=== PATIENT | female | born 1995 | race Caucasian/White ===

== ENCOUNTER 2023-07-18 16:35 | Outpatient (OUT) | payer BC, SELFPAY ==
[2023-07-18 16:55] LABS: Basophils Absolute Auto 0.1 10^3/uL (0.0-0.1); Basophils Percent Auto 0.7 % (0.2-2.0); Eosinophils Absolute Auto 0.4 10^3/uL (0.0-0.7); Eosinophils Percent Auto 4.9 % (0.9-7.0); Hematocrit 41.8 % (36.0-48.0); Hemoglobin 14.2 g/dL (12.0-16.0); Immature Granulocytes Abs Auto 0.01 10^3/uL (0.00-0.03); Immature Granulocytes Pct Auto 0.1 % (0.0-0.5); Lymphocytes Absolute Auto 1.4 10^3/uL (1.2-3.8); Lymphocytes Percent Auto 18.7 % (20.5-60.0); Mean Corpuscular Hemoglobin 30.8 pg (26.7-34.0); Mean Corpuscular Volume 90.7 fL (81.0-99.0); Mean Platelet Volume 9.6 fL (9.5-13.5); Monocytes Absolute Auto 0.6 10^3/uL (0.3-0.8); Monocytes Percent Auto 7.8 % (1.7-12.0); Neutrophils Absolute Auto 4.9 10^3/uL (1.4-6.5); Neutrophils Percent Auto 67.8 % (43.0-75.0); Platelet Count 232 10^3/uL (150-450); Red Blood Count 4.61 10^6/uL (4.20-5.40); Red Cell Distribution Width 12.3 % (11.0-15.0); White Blood Count 7.2 10^3/uL (4.0-11.0)
[2023-07-18 17:05] LABS: Estimated Average Glucose 100 mg/dL; Glycohemoglobin A1C 5.1 % (4.5-6.2)
[2023-07-18 17:34] LABS: Alanine Aminotransferase 27 U/L (14-59); Albumin Globulin Ratio 1.2; Alkaline Phosphatase 91 U/L (46-116); Anion Gap 14.2; Aspartate Amino Transferase 19 U/L (15-37); BUN Creatinine Ratio 12.3; Bilirubin Total 0.9 mg/dL (0.2-1.0); Calcium 8.4 mg/dL (8.5-10.1); Carbon Dioxide 26.4 mmol/L (21.0-32.0); Chloride 104 mmol/L (98-107); Chol HDL Ratio 2.9; Cholesterol 168 mg/dL (<=200); Estimated GFR (African America >60 (>=60); Estimated GFR (Non-African Ame >60 (>=60); Globulin 3.4 g/dL; Glucose 95 mg/dL (74-106); HDL Cholesterol 57 mg/dL (40-60); Potassium 3.6 mmol/L (3.5-5.1); Sodium 141 mmol/L (136-145); Thyroid Stimulating Hormone 1.307 uIU/mL (0.358-3.740); Total Protein 7.4 g/dL (6.4-8.2); Triglycerides 65 mg/dL (<=150)
== END 2023-07-18 16:36 | disposition home or self-care (01) ==
PROVIDERS: PCP Nurse Practitioner; Visit Provider Nurse Practitioner
DX: Z00.00 Encounter for general adult medical examination without abnormal findings (principal)
CPT/HCPCS: 36415; 80053; 80061; 83036; 84443; 85025

== ENCOUNTER 2023-08-14 19:22 | Outpatient (REF) | payer BC, SELFPAY ==
[2023-08-19 16:10] LABS: Age Gdln ACOG Testing Note (.); IGP, rfx Aptima HPV ASCU Note (.)
== END 2023-08-14 19:23 | disposition home or self-care (01) ==
LOC: LAB 19:22
PROVIDERS: PCP Nurse Practitioner; Visit Provider Obstetrics & Gynecology
DX: Z01.419 Encounter for gynecological examination (general) (routine) without abnormal findings (principal)
CPT/HCPCS: G0145

== ENCOUNTER 2024-09-01 20:06 | Outpatient (REF) | payer BC, SELFPAY ==
--- OUTSIDE RECORDS SUMMARY | 2024-09-01 20:11 | XMS_ITS | CCD ---
Author Organization [facility] Care Team Providers Care Fuel Injection Servicer Name Role Phone CAROLYN CARRILLO Unavailable Unavailable NO FAMILY DOCTOR, NO FAMILY DOCTOR Unavailable Unavailable Hannah Calvo Unavailable Ana María Hanna Unavailable ABDIEL, DR JOLLEY Consulting Unavailable ABDIEL, DR JOLLEY Attending Unavailable ABDIEL, DR JOLLEY Admitting Unavailable ABDIEL, DR JOLLEY Attending Unavailable ABDIEL, DR JOLLEY Procedure Practitioner Unavailab le ABDIEL, DR JOLLEY Consulting Unavailable ABDIEL, DR JOLLEY Admitting Unavailable ZIEBER, DR DEREJE Block Consulting Unavailable SHARPKEYONNA Consulting Unavailable GEMBUS, DURAN Consulting Unavailable ABDIEL, DR JOLLEY Admitting Unavailable ABDIEL, DR JOLLEY Attending Unavailable ABDIEL, DR JOLLEY Consulting Unavailable ABDIEL, DR JOLLEY Admitting Unavailable ABDIEL, DR JOLLEY Attending Unavailable ABDIEL, DR JOLLEY Consulting Unavailable ZIEBER, DR DEREJE Block Consulting Unavailable ABDIEL, DR JOLLEY Consulting Unavailable ABDIEL, DR JOLLEY Attending Unavailable ABDIEL, DR JOLLEY Admitting Unavailable ABDIEL, DR JOLLEY Consulting Unavailable ABDIEL, DR JOLLEY Attending Unavailable ABDIEL, DR JOLLEY Admitting Unavailable ZIEBER, DR DEREJE Block Consulting Unavailable ABDIEL, DR JOLLEY Admitting Unavailable ABDIEL, DR JOLLEY Attending Unavailable ABDIEL, DR JOLLEY Consulting Unavailable ABDIEL, DR JOLLEY Admitting Unavailable ABDIEL, DR JOLLEY Attending Unavailable ABDIEL, DR JOLLEY Consulting Unavailable ABDIEL, DR JOLLEY Attending Unavailable ABDIEL, DR JOLLEY Consulting Unavailable ABDIEL, DR JOLLEY Admitting Unavailable ABDIEL, DR JOLLEY Attending Unavailable ABDIEL, DR JOLLEY Consulting Unavailable DR SHOLA QUINONEZ Admitting Unavailable None, Physician Primary Care Provider ALBERT Masters Emergency Provider [phone] Sherman Masters Attending Unavailable None Primary Care Unavailable ALBRET RODAS Attending Unavailabl e NONE, XXXX Primary Care Physician Unavailab naa Villagran SENIOR TECHNICAL SUPPORT ANALYST, Erika Unavailable Tyshawn SENIOR TECHNICAL SUPPORT ANALYST, Erika Unavailable Anatoliy Pendleton MD Primary Care Provider [phone] SHOLA QUINONEZ Attending Unavailable SHOLA QUINONEZ Attending Unavailable ERIKA VILLAGRAN Attending Unavailable ERIKA VILLAGRAN Attending Unavailable ERIKA VILLAGRAN Attending Unavailable Medications Current Medications Medication Drug Class(es) Dates Sig (Normalized) Sig (Original) acetaminophen 325 mg / HYDROcodone bitartrate 5 mg oral tablet (2 sources) Opioid Agonist Start: 04-21-2023 take 1 tablet by mouth every eight hours Hydrocodone-Aceta minophen Active 1 TAB PO Q8H 14 5 April 21, 2023 amoxicillin 500 mg oral capsule (3 sources) Penicillin-class Antibacterial Start: 05-22-2024 End: 05-29-2024 take 1 capsule by mouth three times daily amoxicillin 500 mg Cap 500 mg = 1 cap(s), Oral, TID, X 7 day(s), # 21 cap(s), Refills(s) 0, Pharmacy: [facility]/pharmacy #[id number], 165, cm, 05/22/24 16:42:00 EDT, Height/Length Dosing, 68, kg, 05/22/24 16:42:00 EDT, Weight Dosing Start Date: 05/22/24 Stop Date: 05/29/24 Status: Ordered Start: 07-06-2022 take 1 tablet by radha th every twelve hours Amoxicillin 875 MG 1 capsule Orally Twice a day for 7 day(s) Jun, Active azithromycin 250 mg oral tablet (1 source) Macrolide Antimicrobial Start: 07-12-2022 Azithromycin 250 MG 2 tablet on the first day, then 1 tablet daily for 4 days Orally Once a day for 5 day(s) Jun, Active hydrocortisone 10 mg/ml / neomycin 3.5 mg/ml / polymyxin b 01890 unt/ml otic suspension (1 source) Aminoglycoside Antibacterial, Polymyxin-class Antibacterial, Corticosteroid Start: 07-12-2022 Neomycin-Polymyxin- HC [id number] 3 drops left ear Three times a day for 7 days Jun, Active levonorgestrel 0.763083 mg/hr intrauterine system (9 sources) Progestin, Progestin-containin g Intrauterine Device Start: 07-19-2023 Levonorgestrel intrauterine device 52 mg predniSONE 20 mg oral tablet (1 source) Start: 05-22-2024 End: 05-27-2024 take 2 tablets by mouth once daily predniSONE 20 mg Tab 40 mg = 2 tab(s), Oral, Daily, X 5 day(s), # 10 tab(s), Refills(s) 0, Pharmacy: [facility]/pharmacy #[id number], 165, cm, 05/22/24 16:42:00 EDT, Height/Length Dosing, 68, kg, 05/22/24 16:42:00 EDT, Weight Dosing Start Date: 05/22/24 Stop Date: 05/27/24 Status: Ordered zolpidem tartrate 5 mg oral tablet (5 sources) gamma-Aminobutyric Acid-ergic Agonist Start: 06-02-2024 End: 07-02-2024 zolpidem (Ambien) 5 MG tablet Indications: Primary insomnia Take 1 tablet (5 mg) by mouth as needed at bedtime for sleep 30 tablet 1 06/02/2024 Active Completed/Discontinued Medications Medication Drug Class(es) Dates Sig (Normalized) Sig (Original) sertraline 50 mg oral tablet (13 sources) Serotonin Reuptake Inhibitor Start: 05-01-2024 End: 10-12-2024 take 1 tablet by mouth once daily sertraline (Zoloft) 50 MG tablet Indications: Generalized anxiety disorder (CMS/HCC) Take 1 tablet (50 mg) by mouth Daily 90 tablet 06/02/2024 07/14/2024 Discontinued (Reorder) Problems Active Problems Problem Classification Problem Date Documented Date Episodic/Chronic Abdominal pain (2 sources) Abdominal pain; Translations: [Unspecified abdominal pain] Episodic Anxiety disorders (14 sources) Generalized anxiety disorder; Translations: [Generalized anxiety disorder] Onset: 05-01-2024 06-02-2024 Chronic Bacterial infection; unspecified site (1 source) Bacterial infectious disease; Translations: [Other specified bacterial agents as the cause of diseases classified elsewhere] Onset: 05-22-2024 Episodic Fracture of lower limb (1 source) Fracture of foot ; Translations: [Unspecified fracture of left foot, initial encounter for closed fracture] 04-21-2023 Episodic Immunizations and screening for infectious disease (6 sources) Encounter for screening for human papillomavirus (HPV); Translations: [Encounter for screening for infections with a predominantly sexual mode of transmission] Onset: 11-02-2021 Episodic Malposition; malpresentation (3 sources) Maternal care for breech presentation, not applicable or unspecified; Translations: [MATERNAL CARE BREECH PRES NA/UNS] Onset: 05-17-2022 Episodic Menstrual disorders (13 sources) Irregular menstruation, unspecified; Translations: [Menorrhagia] Onset: 11-01-2021 Chronic Miscellaneous mental health disorders (9 sources) Primary insomnia; Translations: [Primary insomnia] Onset: 06-02-2024 06-02-2024 Chronic Other ear and sense organ disorders (1 source) Unspecified acute noninfective otitis externa, left ear Episodic Other female genital disorders (9 sources) Cervical intraepithelial neoplasia grade 2; Translations: [Moderate cervical dysplasia] Onset: 05-01-2024 05-01-2024 Episodic Other and delivery including normal (2 sources) Single live ; Translations: [Encounter for supervision of normal , unspecified, first trimester] Onset: 10-05-2021 Episodic Other screening for suspected conditions (not mental disorders or infectious disease) (20 sources) Encounter for screening for malignant neoplasm of cervix; Translations: [Encounter for screening for Streptococcus B] Onset: 11-01-2021 Episodic Other upper respiratory infections (2 sources) Acute laryngitis; Translations: [Acute laryngitis] Onset: 05-22-2024 Episodic Otitis media and related conditions (2 sources) Otitis media, unspecified, bilateral; Translations: [Otitis media, unspecified, left ear] Episodic Residual codes; unclassified (1 source) 39 weeks gestation of ; Translations: [39 WEEKS GESTATION OF ] Onset: 05-23-2022 Episodic Residual codes; unclassified (2 sources) Pain; Translations: [Pain, unspecified] 04-21-2023 Episodic Unclassified (2 sources) Pelvic and perineal pain / R10.2(ICD-9) Onset: 10-06-2017 Unclassified (1 source) Oth complication of genitourinary prosth dev/grft, init / T83.89XA(ICD-9) Onset: 10-06-2017 Unclassified (1 source) EXCESS FREQ MENSTRUATION W/REG CYCL / N92.0(ICD-9) Onset: 10-06-2017 Unclassified (1 source) CONTACT W/AND (SUSP) EXPOS COVID-19; Translations: [CONTACT W/AND (SUSP) EXPOS COVID-19] Onset: 05-17-2022 Past or Other Problems Problem Classification Problem Date Documented Date Episodic/Chronic Abdominal pain (1 source) Pelvic and perineal pain; Translations: [Pelvic and perineal pain] Onset: 10-06-2017 Other female genital disorders (1 source) Other specified noninflammatory disorders of vagina; Translations: [OTH SPEC NONINFLAMMATORY D/O VAGINA] Onset: 12-30-2021 Episodic Results Test Name Value Interpretation Reference Range Facility Family Medicine Office/Clini c Noteon 05-25-2024 Family Medicine Office/Clinic Note Family Medicine Office/Clinic Note Chief Complaint cough HPI Staff 29 year old female presents with cough, fever, painful deep breaths, and loss of voice since Sunday tylenol, motrin History of Present Illness Reviewed and agree with above documented HPI by medical device engineer. Portions of this record may have been created with voice recognition artificial intelligence software, specifically [employer], [employer] and or [employer]. Substitutions may have occurred due to the inherent limitations of voice recognition and artificial intelligence software. Patient is a 29-year-old female who presented convenient care, nonproductive cough, fever, pain with taking deep breaths, loss of voice. States symptoms been going on for over 2 to 3 weeks, fissured nose allergies, but symptoms persist, she started getting fevers, started taking ibuprofen and Tylenol together which has been helping, she has been drinking plenty of fluids, states she started getting laryngitis about 4 days ago, states she has been able to eat and drink, has a sense of taste and smell intact, has some discomfort swallowing but no difficulty swallowing, patient that she is not concerned about exposure to COVID-19 or, influenza, strep pharyngitis. Patient and no other family members are ill at home. Patient denies having any headaches, dizziness, fevers that is uncontrollable with medication, chills, difficulty swallowing, productive cough, worsening cough, wheezing, chest pain, dyspnea on exertion, or weakness. Review of Systems PHQ Score Initial Depression Screen Score: 0 SCORE Physical Exam Vitals & Measurements T: 38.2 ?C(Tympanic) HR: 71(Peripheral) BP: 112/68 SpO2: 99% HT: 65 in HT: 165 cm WT: 68 kg WT: 149.6 lb BMI: 24.98 General: Well developed, well nourished, in no acute distress. Patient does not appear ill or septic. No respiratory distress. Patient answers questions appropriately in complete sentences, and follows commands appropriately. Head: Normocephalic/atraumati c. Bilateral frontal and bilateral maxillary sinus tenderness and pressure with palpation. No facial swelling or cellulitis noted. Eyes: Pupils equal, round, and reactive to light. Conjunctivae and sclerae normal. Ears: Bilateral TMs bulging, equally with no signs of otitis media or otitis externa. Hearing is intact. Nose: No deformity, discharge, inflammation, or lesions Mouth: Mucous membranes moist. Normal oropharynx, and posterior pharynx erythema and postnasal drip more on the right than the left, without exudates, enlarged tonsils, lesions, or peritonsillar abscess. No trismus. No difficulty swallowing. Neck: Neck supple. No masses or palpable cervical nodes. No mastoid tenderness. Lungs: Normal respiratory effort and clear to auscultation throughout. Cardio: regular rate and rhythm, no murmur. No chest wall tenderness. Neurologic: Grossly normal Skin: No rashes, ulcerations, or suspicious lesions Lymph Nodes: no lad Mental Status: alert, active Assessment/Plan No swabs, breathing treatment, chest imaging or indicated at this time. 29-year-old female presented convenient care, for acute bacterial sinusitis, symptoms started about 3 weeks ago, laryngitis started about Sunday last week, patient did appear ill but not septic, no respiratory distress, no difficulty swallowing. Patient was given prescription for amoxicillin and prednisone, instructed take [id number] Tylenol as needed for body aches, fevers, headaches. Patient given work excuse note, and follow-up with primary care provider as needed. 1. Acute bacterial sinusitis (J01.90: Acute sinusitis, unspecified) See above 2. Laryngitis (J04.0: Acute laryngitis) See above Other specified bacterial agents as the cause of diseases classified elsewhere (B96.89: Other specified bacterial agents as the cause of diseases classified elsewhere) Follow-up With When Contact Information NONE, XXXX [phone] Additional Instructions: Patient Education Laryngitis, Xsks-vq-Uhla Sinus Infection, Adult, Ydze-xk-Qexj Problem List/Past Medical History Ongoing No qualifying data Historical No qualifying data Medications amoxicillin 500 mg Cap, 500 mg= 1 cap(s), Oral, TID predniSONE 20 mg Tab, 40 mg= 2 tab(s), Oral, Daily sertraline 50 mg Tab Allergies No Known Medication Allergies Social History Tobacco Never (less than 100 in lifetime) Tobacco Use:. Never Smokeless Tobacco Use:., 05/22/2024 Immunizations Vaccine Date Status Comments influenza virus vaccine, inactivated 08/18/2022 Recorded SARS-CoV-2 (COVID-19) mRNA-1273 vaccine 07/28/2021 Recorded 2024-05-22: TPVALL SARS-CoV-2 (COVID-19) mRNA-1273 vaccine 07/04/2021 Recorded 2024-05-22: TPVALL influenza virus vaccine, inactivated 05/05/2020 Recorded measles/mumps/rubella virus vaccine 06/20/2019 Recorded influenza virus vaccine, inactivated 06/20/2019 Recorded diphtheria/pertussis, acel/tetanus adult 05/17/2017 Record (more content not included)... Normal [facility] Comment on above: Result Comment: Elec tronically Signed By: SEAN RODAS PA-C\.br\Date and Time Signed: 05/25/24 14:12 EDT Ambulatory Visit Summaryon 1 Ambulatory Visit Summary Ambulatory Visit Summary LETHA NEWBY :1995 Visit Date:05/22/2024 Ambulatory Visit Instructions Your Diagnosis Acute bacterial sinusitis Laryngitis Other specified bacterial agents as the cause of diseases classified elsewhere Your Care Team Attending Physician - SEAN RODAS PA-C Primary Care Physician - NONE, XXXX This Is Your Medications List amoxicillin (amoxicillin 500 mg Cap) predniSONE (predniSONE 20 mg Tab) sertraline (sertraline 50 mg Tab) Discharge Vitals Temperature (Tympanic) 38.2 ?C Heart Rate (Peripheral) 71 Blood Pressure 112/68 Height 165 cm Height 65 in Weight 68 kg Weight 149.6 lb BMI 24.98 Medications What How Much When Why Instructions New amoxicillin (amoxicillin 500 mg Cap) 1 Capsules By Mouth 3 times a day Acute bacterial sinusitis Duration: [id number] New predniSONE (predniSONE 20 mg Tab) 2 Tablets By Mouth Every day Laryngitis Duration: 5 Days [id number] Unchanged sertraline (sertraline 50 mg Tab) 30 EA, 0 Refill(s), TAKE 1/ 2 TABLET DAILY FOR 7 DAYS THEN INCREASE TO 1 TABLET DAILY Pharmacy Information [facility] #[id number]: [address], [place] [id number] [phone] Allergies No Known Medication Allergies Patient Survey You may receive a survey via text or e-mail asking about your office visit. Please share your experience with us by completing your survey. We appreciate your feedback and thank you for choosing us for your care. [facility] Patient Letter [facility] [address] [place] [address] May 22, 2024 LETHA NEWBY [address] [place] [address] : 1995 Please excuse LETHA NEWBY from work . Date and/or Time of Absence: From: 05/22/24 May return to work on: 05/26/24 Restrictions: None Comments: Please excuse due to an acute illness. Provider Signature: Sean Rodas PA-C [address] [place] [address] [place] [address] [facility] ER Physician Documentationon 04-30-2023 ER Physician Documentation [facility] Patient: BETTYELETHAKERI LUCAS [address] : 1995 [place] [address] Location: ER [phone] Unit #: [id number] ER Physician Documentation Service Date:04/21/23 ER Provider: Guerrero PRICE,Sherman BRADLEY - Lower Extremity Injury - Time Seen by Provider: 04/21/23 08:03 History of Present Illness Stated Complaint: LT FOOT INJURY History of Present Illness: This is a 28-year-old female who presents emergency department complaints of left foot pain. She was standing on a 4 inch block of wood when the wood slipped out from under her she inverted her ankle//foot. She did not suffer any other injuries. She did not hit her head or lose consciousness. She denies any associated knee pain. No chance of . No other complaints at this time. Review of Systems Review of Systems Constitutional: No symptoms; denies Weight gain or Weight loss EENT: No symptoms; denies Sore throat or Runny nose Respiratory: No symptoms; denies Cough or Trouble breathing Cardiac: No symptoms; denies Chest pain Abdomen/GI: No symptoms; denies Nausea, Vomiting, Diarrhea or Pain Genitourinary: No symptoms; denies Flank pain or Urgency Skin: No symptoms; denies Itching or Rash Musculoskeletal: Other (Left foot pain); denies Muscle pain, Joint pain, Neck pain or Back pain Neurological: No symptoms; denies Dizzy, Headache or Weakness Past Family Social History Social History: Caffeine Amount: <1/Day Alcohol Amount: Socially/Occasionally Type of Alcohol: Bee r Street Drugs: None Smoking Status: Never smoked Exam Physical Exam: Patient presentation: Well appearing and No apparent distress Genera l Appearance: Positive Resting comfortable General Age: Appears stat ed age General Mental Status: Alert General hydration: Moist muco us membranes Orders/Results Orders: Orders Crutches (ED) [ED Crutches] NOW ED Ortho 04/21/23 08:56 Active Splint (ED) [ED Splint Applied] . DIRECTED ED Tx 04/21/23 08:56 Active Vital Signs Vital Signs: Vital Signs 04/21/23 08:05 98.2 F 103 H 17 132/108 H 95 Medical Decision Making MDM: HPI: This is a 28-year-old female who presents emergency department complaints of left foot pain. She was standing on a 4 inch block of wood when the wood slipped out from under her she inverted her ankle//foot. She did not suffer any other injuries. She did not hit her head or lose consciousness. She denies any associated knee pain. No chance of . No other complaints at this time. PE: Ecchymosis and swelling noted to the left lateral foot. Normal dorsi/plantarflexion. 2+ DP/PT pulses. Tenderness noted to the left 4th, 5th MT. Differential diagnoses include left foot fracture, left ankle fracture, musculoskeletal sprain Laboratory studies today included none Imaging ordered today included XR left foot, XR left ankle I ordered the lab test today and imaging and reviewed the results which included normal labs. I reviewed the patient's prior hospitalization/ER records from our EMR. Patient received no medicines in our emergency department. Was offered pain medication but declined. Patient will be discharged with diagnosis of left foot fracture We discussed return to emergency department criteria, the patient acknowledges that they understand and are agreeable with the plan of care. Vital signs are stable at time of discharge. Rx: Corona 0900: Unfortunately patient is here from out of town. She is currently camping. She will follow-up with orthopedic surgeon in her hometown. Encouraged rest ice and elevate. Procedures Splinting/Sling Placement Left Foot: Pre-splint extremity exam: Neurovascular intact and Good alignment Type of splint: Posterior long leg Splint Material: OCL Applied by: Tech With direct supervison by: Myself Post application neurovascular intact?: Yes Crutches fitted by: Tech Additional information: Patient tolerated well, neurovascular intact. Supervision/Review Statement Supervision/Review of Mid-Level Statement: Supervision ONLY, my collaborating physician was Dr. Oswaldo Bryant. Discharge Plan Discharge Patient Disposition: Discharge from ER Condition: Good Chief Complaint: Lower Extremity Injury Clinical Impression*: Fracture of left foot Instructions: Foot Fracture in Adults (ED) Activity Restrictions/Additional Instructions: Please return to emergency department with questions/concerns/conc erning symptoms. Follow-up with your primary care doctor. Follow-up with an orthopedic surgeon in your hometown. Use Corona with caution as it may make you drowsy. Do not work or drive while taking this medicine. Rest, ice, elevate. Referrals: None,Physician [Primary Care Provider] - Tomorrow *If patient expires, ba (more content not included)... Normal [facility] XR Ankle Lt Routine Min 3 Vw son 04-21-2023 XR Ankle Lt Routine Min 3 Vws [facility] Radiology Department Patient: LETHA NEWBY [address] : 1995 Sex: Aric Zimmer [id number] Location: [place] [address] Unit #: [id number] Ordering Phys: Sherman Masters PA-C Exam Date: 04/21/23 Exam: MAIN XR Ankle Lt Routine Min 3 Vws Result: See Report STUDY: X-RAY - LEFT ANKLE REASON FOR EXAM: Female, 28 years old. LATERAL ASPECT PAIN, SWELLING, AND BRUISING OF THE FOOT-X 1 DAY-PT STATES SHE ROLLED HER ANKLE WHILE STANDING ON A LOG TECHNIQUE: 3 view(s) of the ankle. COMPARISON: None. FINDINGS: Normal visualized distal tibia and fibula. Normal medial and lateral malleoli. Normal tibiotalar articulation and ankle mortise. Normal visualized talus and calcaneus. The visualized subtalar, talonavicular, calcaneocuboid and tarsal articulations are normal. There is no demonstrated fracture. The soft tissue structures are unremarkable. IMPRESSION: Normal x-ray examination of the ankle. Electronically Signed: Mannie Brown MD at 8:48 EDT , cc: None; Sherman Masters PA-C Dictated by: Mannie Brown MD on 04/21/23847 Transcribed by: Mannie Brown MD on 04/21/23847 Report Signed by: Kevin ROTH,Mannie Garces on 04/21/23847 Normal [facility] XR Foot Lt. Routine Min 3 Vi ewon 04-21-2023 XR Foot Lt. Routine Min 3 View [facility] Radiology Department Patient: LETHA NEWBY [address] : 1995 Sex: Aric Zimmer [id number] Location: [phone] Unit #: [id number] Ordering Phys: Sherman Masters PA-C Exam Date: 04/21/23 Exam: MAIN XR Foot Lt. Routine Min 3 View Result: See Report STUDY: X-RAY - LEFT FOOT CLINICAL: Female, 28 years old. LATERAL ASPECT PAIN, SWELLING, AND BRUISING OF THE FOOT-X 1 DAY-PT STATES SHE ROLLED HER ANKLE WHILE STANDING ON A LOG TECHNIQUE: 3 view(s) of the foot. COMPARISON: None. FINDINGS: An acute horizontal fracture is present in the base of the fifth metatarsal bone distal to the articular surface with minimal offset. The adjacent soft tissues are mildly swollen. No additional acute fractures are present. Normal talus, calcaneus, and tarsal bones. Normal visualized subtalar, talonavicular, calcaneocuboid, tarsal and tarsometatarsal articulations. Normal metatarsophalangeal joint of the great toe. Normal tibial and fibular sesamoid bones. Normal interphalangeal joint of the great toe. Normal phalanges of the great toe. Normal second through fifth metatarsophalangeal joints. Normal interphalangeal joints and phalanges of the lesser toes. IMPRESSION: 1. Acute horizontal fracture at the base of the fifth metatarsal bone Electronically Signed: Mannie Brown MD at 8:48 EDT Reading Location ID and State: [facility] / [place] , Service support , cc: None; Sherman Masters PA-C Dictated by: Mannie Brown MD on 04/21/23847 Transcribed by: Mannie Brown MD on 04/21/23847 Report Signed by: Mannie Brown MD on 04/21/2348 Normal [facility] PAP ACOG PANEL 2: 21 to 29on 08-17-2022 . . Normal [facility] Comment on above: Performed By: #### [id number] #### [facility] [address] [place] [address] Dr. Nacho Beach Age Gdln ACOG Testing - [facility] Comment on above: Performed By: #### [id number] #### [facility] [address] [place] [address] Dr. Nacho Beach DIAGNOSIS: Comment [facility] Comment on above: Result Comment: NEGA TIVE FOR INTRAEPITHELIAL LESION OR MALIGNANCY. Performed By: #### [id number] #### [facility] [address] [place] [address] Dr. Nacho Beach Methodology: Comment [facility] Comment on above: Result Comment: This liquid based ThinPrep(R) pap test was screened with the use of an image guided system. Performed By: #### [id number] #### [facility] [address] [place] [address] Dr. Nacho Beach Note: Comment [facility] Comment on above: Result Comment: The Pap smear is a screening test designed to aid in the detection of premalignant and malignant conditions of the uterine cervix. It is not a diagnostic procedure and should not be used as the sole means of detecting cervical cancer. Both false-positive and false-negative reports do occur. . Performed By: #### [id number] #### [facility] [address] [place] [address] Dr. Nacho Beach Performed by: Comment [facility] Comment on above: Result Comment: Ananya Potts, Teaching Assistant (ASCP) Performed By: #### [id number] #### [facility] [address] [place] [address] Dr. Nacho Beach Reflex Criteria: Comment [facility] Comment on above: Result Comment: The HPV DNA reflex criteria were not met with this specimen result therefore, no HPV testing was performed. . Performed By: #### [id number] #### [facility] [address] [place], [place] [id number] Dr. Nacho Beach Specimen adequacy: Comment Normal [facility] Comment on above: Result Comment: Sati sfactory for evaluation. Endocervical and/or squamous metaplastic cells (endocervical component) are present. Performed By: #### [id number] #### [facility] [address] [place] [address] Dr. Nacho Beach CBC AUTO DIFFon 05-18-2022 BASO # 0.0 103/ul Normal 0.0-0.1 [facility] Comment on above: Performed By: #### C VDTBH #### [facility] [address] [place] [address] Dr. Nacho Beach Basophils/100 WBC (Bld) 0.3 % Normal 0.2-2.0 [facility] Comment on above: Performed By: #### C VDTBH #### [facility] [address] [place] [address] Dr. Nacho Beach EO # 0.1 103/ul Normal 0.0-0.7 [facility] Comment on above: Performed By: #### C VDTBH #### [facility] [address] [place] [address] Dr. Nacho Beach Eosinophils/100 WBC (Bld) 0.6 % Critically low 0.9-7.0 [facility] Comment on above: Performed By: #### C VDTBH #### [facility] [address] [place] [address] Dr. Nacho Beach Erythrocyte distribution width (RBC) [Ratio] 12.3 % Normal 11.0-15.0 [facility] Comment on above: Performed By: #### C VDTBH #### [facility] [address] [place] [address] Dr. Nacho Beach Hematocrit (Bld) [Volume fraction] 29.2 % Critically low 36.0-48.0 [facility] Comment on above: Performed By: #### C VDTBH #### [facility] [address] [place] [address] Dr. Nacho Beach Hemoglobin (Bld) [Mass/Vol] 9.6 g/dL Critically low 12.0-16.0 [facility] Comment on above: Performed By: #### C VDTBH #### [facility] [address] [place] [address] Dr. Nacho Beach IG # 0.06 10e3/ul Critically high 0.00-0.03 [facility] Comment on above: Performed By: #### C VDTBH #### [facility] [address] [place] [address] Dr. Nacho Beach IG % 0.6 % Critically high 0.0-0.5 [facility] Comment on above: Performed By: #### C VDTBH #### [facility] [address] [place] [address] Dr. Nacho Beach LYMPH # 1.0 103/ul Critically low 1.2-3.8 [facility] Comment on above: Performed By: #### C VDTBH #### [facility] [address] [place] [address] Dr. Nacho Beach Lymphocytes/100 WBC (Bld) 9.1 % Critically low 20.5-60.0 [facility] Comment on above: Performed By: #### C VDTBH #### [facility] [address] [place] [address] Dr. Nacho Beach MANUAL DIFF REQ NO Normal [facility] Comment on above: Performed By: #### C VDTBH #### [facility] [address] [place] [address] Dr. Nacho Beach MCH (RBC) [Entitic mass] 30.1 pg Normal 26.7-34.0 [facility] Comment on above: Performed By: #### C VDTBH #### [facility] [address] [place] [address] Dr. Nacho Beach MCHC (RBC) [Mass/Vol] 32.9 g/dL Normal 29.9-35.2 [facility] Comment on above: Performed By: #### C VDTBH #### [facility] [address] [place] [address] Dr. Nacho Beach MCV (RBC) [Entitic vol] 91.5 fL Normal 81.0-99.0 [facility] Comment on above: Performed By: #### C VDTBH #### [facility] [address] [place] [address] Dr. Nacho Beach MONO # 1.0 103/ul Critically high 0.3-0.8 [facility] Comment on above: Performed By: #### C VDTBH #### [facility] [address] [place] [address] Dr. Nacho Beach Monocytes/100 WBC (Bld) 9.9 % Normal 1.7-12.0 [facility] Comment on above: Performed By: #### C VDTBH #### [facility] [address] [place] [address] Dr. Nacho Beach NEUT # 8.3 103/ul Critically high 1.4-6.5 [facility] Comment on above: Performed By: #### C VDTB #### [facility] [address] [place] [address] Dr. Nacho Beach Neutrophils/100 WBC (Bld) 79.5 % Critically high 43.0-75.0 [facility] Comment on above: Performed By: #### C VDTB #### [facility] [address] [place] [address] Dr. Nacho Beach Platelet mean volume (Bld) [Entitic vol] 10.2 fL Normal 9.5-13.5 [facility] Comment on above: Performed By: #### C VDTBH #### [facility] [address] [place] [address] Dr. Nacho Beach PLT 159 103/ul Normal 150-450 [facility] Comment on above: Performed By: #### C VDTBH #### [facility] [address] [place] [address] Dr. Nacho Beach RBC 3.19 106/ul Critically low 4.20-5.40 [facility] Comment on above: Performed By: #### C VDTBH #### [facility] [address] [place] [address] Dr. Nacho Beach WBC 10.4 103/ul Normal 4.0-11.0 [facility] Comment on above: Performed By: #### C VDTB #### [facility] [address] [place] [address] Dr. Nacho Beach CBC AUTO DIFFon 05-17-2022 BASO # 0.0 103/ul Normal 0.0-0.1 [facility] Comment on above: Performed By: #### C BC #### [facility] [address] [place] [address] Dr. Nacho Beach Basophils/100 WBC (Bld) 0.3 % Normal 0.2-2.0 [facility] Comment on above: Performed By: #### C BC #### [facility] [address] [place] [address] Dr. Nacho Beach EO # 0.2 103/ul Normal 0.0-0.7 [facility] Comment on above: Performed By: #### C BC #### [facility] [address] [place] [address] Dr. Nacho Beach Eosinophils/100 WBC (Bld) 1.8 % Normal 0.9-7.0 [facility] Comment on above: Performed By: #### C BC #### [facility] [address] [place] [address] Dr. Nacho Beach Erythrocyte distribution width (RBC) [Ratio] 12.2 % Normal 11.0-15.0 [facility] Comment on above: Performed By: #### C BC #### [facility] [address] [place] [address] Dr. Nacho Beach Hematocrit (Bld) [Volume fraction] 36.2 % Normal 36.0-48.0 [facility] Comment on above: Performed By: #### C BC #### [facility] [address] [place] [address] Dr. Nacho Beach Hemoglobin (Bld) [Mass/Vol] 12.1 g/dL Normal 12.0-16.0 [facility] Comment on above: Performed By: #### C BC #### [facility] [address] [place] [address] Dr. Nacho Beach IG # 0.06 10e3/ul Critically high 0.00-0.03 The [facility] Comment on above: Performed By: #### C BC #### [facility] [address] [place] [address] Dr. Nacho Beach IG % 0.7 % Critically high 0.0-0.5 [facility] Comment on above: Performed By: #### C BC #### [facility] [address] [place] [address] Dr. Nacho Beach LYMPH # 1.1 103/ul Critically low 1.2-3.8 [facility] Comment on above: Performed By: #### C BC #### [facility] [address] [place] [address] Dr. Nacho Beach Lymphocytes/100 WBC (Bld) 12.6 % Critically low 20.5-60.0 [facility] Comment on above: Performed By: #### C BC #### [facility] [address] [place] [address] Dr. Nacho Beach MANUAL DIFF REQ NO Normal [facility] Comment on above: Performed By: #### C BC #### [facility] [address] [place] [address] Dr. Nacho Beach MCH (RBC) [Entitic mass] 30.3 pg Normal 26.7-34.0 [facility] Comment on above: Performed By: #### C BC #### [facility] [address] [place] [address] Dr. Nacho Beach MCHC (RBC) [Mass/Vol] 33.4 g/dL Normal 29.9-35.2 [facility] Comment on above: Performed By: #### C BC #### [facility] [address] [place] [address] Dr. Nacho Beach MCV (RBC) [Entitic vol] 90.5 fL Normal 81.0-99.0 [facility] Comment on above: Performed By: #### C BC #### [facility] [address] [place] [address] Dr. Nacho Beach MONO # 0.8 103/ul Normal 0.3-0.8 [facility] Comment on above: Performed By: #### C BC #### [facility] [address] [place] [address] Dr. Nacho Beach Monocytes/100 WBC (Bld) 9.3 % Normal 1.7-12.0 [facility] Comment on above: Performed By: #### C BC #### [facility] [address] [place] [address] Dr. Nacho Beach NEUT # 6.7 103/ul Critically high 1.4-6.5 [facility] Comment on above: Performed By: #### C BC #### [facility] [address] [place] [address] Dr. Nacho Beach Neutrophils/100 WBC (Bld) 75.3 % Critically high 43.0-75.0 [facility] Comment on above: Performed By: #### C BC #### [facility] [address] [place] [address] Dr. Nacho Beach Platelet mean volume (Bld) [Entitic vol] 10.4 fL Normal 9.5-13.5 [facility] Comment on above: Performed By: #### C BC #### [facility] [address] [place] [address] Dr. Nacho Beach PLT 152 103/ul Normal 150-450 [facility] Comment on above: Performed By: #### C BC #### [facility] [address] [place] [address] Dr. Nacho Beach RBC 4.00 106/ul Critically low 4.20-5.40 [facility] Comment on above: Performed By: #### C BC #### [facility] [address] [place] [address] Dr. Nacho Beach WBC 8.9 103/ul Normal 4.0-11.0 [facility] Comment on above: Performed By: #### C BC #### [facility] [address] [place] [address] Dr. Nacho Beach DRUG SCREEN RAPID (URINE)on 05-17-2022 AMP Negative Normal NEGATIVE [facility] Comment on above: Performed By: #### C VDTBH #### [facility] [address] [place] [address] Dr. Nacho Beach BAR Negative Normal NEGATIVE [facility] Comment on above: Performed By: #### C VDTBH #### [facility] [address] [place] [address] Dr. Nacho Beach BUP Negative Normal NEGATIVE [facility] Comment on above: Performed By: #### C VDTBH #### [facility] [address] [place] [address] Dr. Nacho Beach BZO Negative Normal NEGATIVE [facility] Comment on above: Performed By: #### C VDTBH #### [facility] [address] [place] [address] Dr. Nacho Beach NOMI Negative Normal NEGATIVE [facility] Comment on above: Performed By: #### C VDTBH #### [facility] [address] [place] [address] Dr. Nacho Beach CUT-OFFS SEE BELOW Normal [facility] Comment on above: Result Comment: AMP (Amphetamine): 500ng/mL, BAR (Barbituates): 200 ng/mL, BZO (Benzodiazepines): 150 ng/mL, BUP (Buprenorphine): 10 ng/mL, NOMI (Cocaine): 150 ng/mL, mAMP (Methamphetamine): 500 ng/mL, MTD (Methadone): 200 ng/mL, OPI (Opiates): 100 ng/mL, OXY (Oxycodone): 100 ng/mL, PCP (Phencyclidine): 25 ng/mL, PPX (Propoxyphene): 300 ng/mL, THC (Cannabinoids): 50 ng/mL, TCA (Trycyclic Antidepressants): 300 ng/mL Performed By: #### C VDTBH #### [facility] [address] [place] [address] Dr. Nacho Beach DRUG CUT HEADER DRUG CLASS TEST SYST EM CUT-OFF CONCENTRATIONS ARE FOLLOWS: Normal [facility] Comment on above: Performed By: #### C VDTBH #### [facility] [address] [address] [address] Nacho Beach mAMP Negative Normal NEGATIVE [facility] Comment on above: Performed By: #### C VDTBH #### [facility] [address] [place] [address] Dr. Nacho Beach MTD Negative Normal NEGATIVE [facility] Comment on above: Performed By: #### C VDTBH #### [facility] [address] [place] [address] Dr. Nacho Beach OPI Negative Normal NEGATIVE [facility] Comment on above: Performed By: #### C VDTBH #### [facility] [address] [place] [address] Dr. Nacho Beach OXY Negative Normal NEGATIVE [facility] Comment on above: Performed By: #### C VDTBH #### [facility] [address] [place] [address] Dr. Nacho Beach PCP Negative Normal NEGATIVE [facility] Comment on above: Performed By: #### C VDTBH #### [facility] [address] [place] [address] Dr. Nacho Beach PPX Negative Normal NEGATIVE [facility] Comment on above: Performed By: #### C VDTBH #### [facility] [address] [place] [address] Dr. Nacho Beach TCA Negative Normal NEGATIVE [facility] Comment on above: Performed By: #### C VDTBH #### [facility] [address] [place] [address] Dr. Nacho Beach THC Negative Normal NEGATIVE [facility] Comment on above: Performed By: #### C VDTBH #### [facility] [address] [place] [address] Dr. Nacho Beach TYPE AND SCREENon 05-17-2022 TYPE AND SCREEN Negative Normal [facility] Comment on above: Performed By: #### T NS #### [facility] [address] [place] [address] Dr. Nacho Beach US PREG LIMITEDon 05-17-2022 US PREG LIMITED EXAMINATION: US PREG LIMITED HISTORY: Born by breech delivery COMPARISON: No relevant comparison available. FINDINGS: Presentation: Breech Heart rate: 137 bpm GA: 39 weeks 1 day DIALLO: 05/23/2022 IMPRESSION: 1. Single live intrauterine in breech position. Electronically authenticated by: DEREJE BROWNEYAMILET Date: 2022-05-17 07:55 Normal [facility] Covid-19 PCR (CVDTB)on 04-21 SARS-CoV-2 (COVID-19) RNA GRACIELA+probe Ql (Unsp spec) Not detected Normal NOT DETECTED [facility] Comment on above: Result Comment: This test is not yet approved or cleared by the [place] FDA. When there are no FDA-approved or cleared tests available, and other criteria are met, FDA can make tests available under an emergency access mechanism called an Emergency Use Authorization (EUA). The EUA for this test is supported by the [place] of Health and Human Service's (HHS's) declaration that circumstances exist to justify the emergency use of in vitro diagnostics for the detection and/or diagnosis of the virus that causes COVID-19. This EUA will remain in effect (meaning this test can be used) for the duration of the COVID-19 declaration justifying emergency of IVDs, unless it is terminated or revoked by FDA (after which the test may no longer be used). When diagnostic testing is negative, the possibility of a false negative should be considered in the context of a patient's recent exposures and the presence of clinical signs and symptoms consistent with SARS-CoV-2. Performed By: #### C VDTBH #### [facility] [address] [place] [address] Dr. Nacho Beach GROUP B STREP CULTUREon S. agalactiae Ag Ql (Unsp spec) Culture Observations: NEGATIVE FOR GROUP B STREPTOCOCCUS. Normal [facility] Comment on above: Performed By: #### G BSCX #### [facility] [address] [place] [address] Dr. Nacho Beach GLUCOSE - 1HRon 02-22-2022 Glucose [Mass/Vol] 138 mg/dL Critically high 74-106 T [facility] Comment on above: Performed By: #### C BC #### [facility] [address] [place] [address] Dr. Nacho Beach HEMOGRAM AND PLATELon 2021 Hematocrit (Bld) [Volume fraction] 37.5 % Normal 36.0-48.0 [facility] Comment on above: Performed By: #### C BC #### [facility] [address] [address] [address] Nacho Beach Hemoglobin (Bld) [Mass/Vol] 12.7 g/dL Normal 12.0-16.0 [facility] Comment on above: Performed By: #### C BC #### [facility] [address] [place] [address] Dr. Nacho Beach MCH (RBC) [Entitic mass] 31.6 pg Normal 26.7-34.0 [facility] Comment on above: Performed By: #### C BC #### [facility] [address] [place] [address] Dr. Nacho Beach MCHC (RBC) [Mass/Vol] 33.9 g/dL Normal 29.9-35.2 [facility] Comment on above: Performed By: #### C BC #### [facility] [address] [place] [address] Dr. Nacho Beach MCV (RBC) [Entitic vol] 93.3 fL Normal 81.0-99.0 [facility] Comment on above: Performed By: #### C BC #### [facility] [address] [place] [address] Dr. Nacho Beach PLT 141 103/ul Critically low 150-450 [facility] Comment on above: Performed By: #### C BC #### [facility] [address] [place] [address] Dr. Nacho Beach RBC 4.02 106/ul Critically low 4.20-5.40 [facility] Comment on above: Performed By: #### C BC #### [facility] [address] [place] [address] Dr. Nacho Beach WBC 9.0 103/ul Normal 4.0-11.0 [facility] Comment on above: Performed By: #### C BC #### [facility] [address] [address] [address] Nacho Beach US PREG ANATOMY SINGLEon US PREG ANATOMY SINGLE EXAMINATION: US PREG ANATOMY SINGLE HISTORY: screening COMPARISON: No relevant comparison available. TECHNIQUE: Transabdominal sonographic examination was performed for obstetrical and evaluation. FINDINGS: Number: 1 Heart Rate: 156.1 bpm H.B. /min Amniotic Fluid Volume: Subjectively normal Placental Location: Anterior-fundal with lower margin 5.0 cm from os. Cervix Length: 4.4 cm, closed. ANATOMY: Normal Structures -cerebellum, choroid plexus, cisterna magna, lateral cerebral ventricles, orbits, midline falx, hard palate, four-chamber heart, RVOT, LVOT, stomach, kidneys, bladder, umbilical cord insertion into abdomen, three-vessel cord, cervical spine, thoracic spine, lumbar spine, sacral spine, right upper extremity, left upper extremity, right lower extremity, left lower extremity. SUBOPTIMALLY SEEN: None ABNORMALITIES: None BIOMETRY: BPD: 5.2 cm 21 weeks 6 days HC: 12.8 cm 16 weeks 3 days AC: 17.3 cm 22 weeks 1 days FL: 3.4 cm 20 weeks 3 days EFW:387.6 grams; 81% FL/AC: 19.4 FL/BPD: 64.3 HC/AC: 0.7 GESTATIONAL AGE: Age by EDC: 20 weeks 2 days DIALLO by EDC: 05/23/2022 Age by current US: 20 weeks 2 days DIALLO by current US: 05/23/2022 IMPRESSION: 1. Single live intrauterine with growth detailed above. Electronically authenticated by: DEREJE ELAINE Date: 2022-01-05 19:34 Normal [facility] CHLAMYDIA/GONOCOCCUS GRACIELA (SW AB/URINE/PAPon 12-31-2021 Chlamydia trachomatis, GRACILEA Negative Normal Negative [facility] Comment on above: Performed By: #### C T/NGNA #### [facility] [address] [address] [address] Nacho Beach Neisseria gonorrhoeae, GRACIELA Negative Normal Negative [facility] Comment on above: Performed By: #### C T/NGNA #### [facility] [address] [address] [address] Nacho Beach VAGINITIS/VAGINOSIS DNA PROB [place] 12-30-2021 Roseanne species Negative Normal Negative [facility] Comment on above: Performed By: #### V AGINT #### [facility] [address] [place] [address] Dr. Nacho Beach Gardnerella vaginalis Negative Normal Negative [facility] Comment on above: Performed By: #### V AGINT #### [facility] [address] [place] [address] Dr. Nacho Beach Trichomonas vaginalis Negative Normal Negative [facility] Comment on above: Performed By: #### V AGINT #### [facility] [address] [place] [address] Dr. Nacho Beach HEP B SURFACE ANTIGEN SCREEN on 11-02-2021 HBsAg Screen Negative Normal Negative [facility] Comment on above: Performed By: #### C VDTBH #### [facility] [address] [place] [address] Dr. Nacho Beach HEPATITIS C VIRUS AB W/ REFL EX QUANTon 11-02-2021 HCV AB <0.1 Normal 0.0-0.9 [facility] Comment on above: Performed By: #### C BC #### [facility] [address] [place] [address] Dr. Nacho Beach Interpretation: Comment Normal [facility] Comment on above: Result Comment: Nega tive Not infected with HCV, unless recent infection is suspected or other evidence exists to indicate HCV infection. Performed By: #### C BC #### [facility] [address] [place] [address] Dr. Nacho Beach HIV 1 AND 2 WITH REFLEXon HIV Screen 4th Generation wRfx Non-Reactive Normal Non Reactive [facility] Comment on above: Result Comment: HIV Negative HIV-1/HIV-2 antibodies and HIV-1 p24 antigen were NOT detected. There is no laboratory evidence of HIV infection. Performed By: #### C VDTBH #### [facility] [address] [place] [address] Dr. Nacho Beach RPR QUANTon 11-02-2021 Rapid Plasma Reagin, Quant Non-Reactive Normal NonRea<1:1 [facility] Comment on above: Performed By: #### C BC #### [facility] [address] [place] [address] Dr. Nacho Beach RUBELLA AB IGGon 11-02-2021 Rubella Antibodies, IgG 2.80 index Normal Immune >0.99 [facility] Comment on above: Result Comment: Non- immune <0.90 Equivocal 0.90 - 0.99 Immune >0.99 Performed By: #### C BC #### [facility] [address] [place] [address] Dr. Nacho Beach CBC AUTO DIFFon 11-01-2021 BASO # 0.1 103/ul Normal 0.0-0.1 [facility] Comment on above: Performed By: #### C BC #### [facility] [address] [place] [address] Dr. Nacho Beach Basophils/100 WBC (Bld) 0.6 % Normal 0.2-2.0 [facility] Comment on above: Performed By: #### C BC #### [facility] [address] [place] [address] Dr. Nacho Beach EO # 0.2 103/ul Normal 0.0-0.7 [facility] Comment on above: Performed By: #### C BC #### [facility] [address] [place] [address] Dr. Nacho Beach Eosinophils/100 WBC (Bld) 2.2 % Normal 0.9-7.0 [facility] Comment on above: Performed By: #### C BC #### [facility] [address] [place] [address] Dr. Nacho Beach Erythrocyte distribution width (RBC) [Ratio] 11.9 % Normal 11.0-15.0 [facility] Comment on above: Performed By: #### C BC #### [facility] [address] [place] [address] Dr. Nacho Beach Hematocrit (Bld) [Volume fraction] 38.4 % Normal 36.0-48.0 [facility] Comment on above: Performed By: #### C BC #### [facility] [address] [address] [address] Nacho [place] Hemoglobin (Bld) [Mass/Vol] 13.3 g/dL Normal 12.0-16.0 [facility] Comment on above: Performed By: #### C BC #### [facility] [address] [address] [address] Nacho Beach IG # 0.04 10e3/ul Critically high 0.00-0.03 [facility] Comment on above: Performed By: #### C BC #### [facility] [address] [place] [address] Dr. Nacho Beach IG % 0.5 % Normal 0.0-0.5 [facility] Comment on above: Performed By: #### C BC #### [facility] [address] [place] [address] Dr. Nacho Beach LYMPH # 1.7 103/ul Normal 1.2-3.8 [facility] Comment on above: Performed By: #### C BC #### [facility] [address] [place] [address] Dr. Nacho Beach Lymphocytes/100 WBC (Bld) 19.6 % Critically low 20.5-60.0 [facility] Comment on above: Performed By: #### C BC #### [facility] [address] [place] [address] Dr. Nacho Beach MANUAL DIFF REQ NO Normal [facility] Comment on above: Performed By: #### C BC #### [facility] [address] [place] [address] Dr. Nacho Beach MCH (RBC) [Entitic mass] 31.1 pg Normal 26.7-34.0 [facility] Comment on above: Performed By: #### C BC #### [facility] [address] [place] [address] Dr. Nacho Beach MCHC (RBC) [Mass/Vol] 34.6 g/dL Normal 29.9-35.2 [facility] Comment on above: Performed By: #### C BC #### [facility] [address] [place] [address] Dr. Nacho Beach MCV (RBC) [Entitic vol] 89.7 fL Normal 81.0-99.0 [facility] Comment on above: Performed By: #### C BC #### [facility] [address] [place] [address] Dr. Nacho Beach MONO # 0.5 103/ul Normal 0.3-0.8 [facility] Comment on above: Performed By: #### C BC #### [facility] [address] [place] [address] Dr. Nacho Beach Monocytes/100 WBC (Bld) 5.9 % Normal 1.7-12.0 [facility] Comment on above: Performed By: #### C BC #### [facility] [address] [place] [address] Dr. Nacho Beach NEUT # 6.2 103/ul Normal 1.4-6.5 [facility] Comment on above: Performed By: #### C BC #### [facility] [address] [place] [address] Dr. Nacho Beach Neutrophils/100 WBC (Bld) 71.2 % Normal 43.0-75.0 [facility] Comment on above: Performed By: #### C BC #### [facility] [address] [place] [address] Dr. Nacho Beach Platelet mean volume (Bld) [Entitic vol] 9.6 fL Normal 9.5-13.5 [facility] Comment on above: Performed By: #### C BC #### [facility] [address] [place] [address] Dr. Nacho Beach PLT 173 103/ul Normal 150-450 [facility] Comment on above: Performed By: #### C BC #### [facility] [address] [place] [address] Dr. Nacho Beach RBC 4.28 106/ul Normal 4.20-5.40 [facility] Comment on above: Performed By: #### C BC #### [facility] [address] [place] [address] Dr. Nacho Beach WBC 8.7 103/ul Normal 4.0-11.0 [facility] Comment on above: Performed By: #### C BC #### [facility] [address] [place] [address] Dr. Nacho Beach CULTURE URINEon 11-01-2021 CULTURE URINE Culture Observations : MODERATE GROWTH OF MIXED GENITAL WILMER. NO POTENTIAL PATHOGENS SEEN. Normal [facility] Comment on above: Performed By: #### C VDTBH #### [facility] [address] [place] [address] Dr. Nacho Beach GLYCOHEMOGLOBIN A1Con 2021 ADA RECOMMENDATION ADA THERAPEUTIC TARG ET 6.0 - 7.0 ACTION SUGGESTED > 7.0 Normal [facility] Comment on above: Performed By: #### A 1C #### [facility] [address] [place] [address] Dr. Nacho Beach Glucose [Mass/Vol] 108 mg/dL Normal [facility] Comment on above: Performed By: #### A 1C #### [facility] [address] [place] [address] Dr. Nacho Beach HbA1c (Bld) [Mass fraction] 5.4 % Normal <=6.0 [facility] Comment on above: Performed By: #### A 1C #### [facility] [address] [place] [address] Dr. Nacho Beach MICHAEL BOX TEST PT SEND OUTo n 11-01-2021 SENT TO REF LAB 11/01/2021 Normal [facility] Comment on above: Performed By: #### C BC #### [facility] [address] [place] [address] Dr. Nacho Beach TYPE AND SCREENon 11-01-2021 TYPE AND SCREEN Negative Normal [facility] Comment on above: Performed By: #### C VDTBH #### [facility] [address] [place] [address] Dr. Nacho Beach US PREG TVon 09-30-2021 US PREG TV EXAMINATION: US PREG TV HISTORY: Missed period COMPARISON: No relevant comparison available. FINDINGS: GESTATIONAL SAC: Present and normal appearing. POLE: Present and normal appearing. YOLK SAC: Present. CARDIAC: Present. UTERUS: Normal size and appearance. OVARIES: Right: Corpus lutein cyst Left: Normal. CERVIX: 4.2 cm in length and closed. CUL-DE-SAC: Normal. OTHER: None. AGE BY LMP: 8 weeks, 1 day DIALLO BY LMP: 05/11/2022 AGE BY US CRL: 6 weeks, 3 days DIALLO BY US CRL: 05/23/2022 IMPRESSION: 1. Single live intrauterine . Electronically authenticated by: DEREJE ELAINE Date: 2021-09-30 10:05 Normal [facility] Basic Metabolic Panelon 09-20 Anion gap 13 mmol/L Normal 10-20 [facility] Comment on above: Performed By: #### 1 [id number] ####[facility] [address] [place] [address] Bicarbonate (HCO3) 24 mmol/L Normal 21-32 [facility] Comment on above: Performed By: #### 1 [id number] ####[facility] [address] [place] [address] BUN/Creatinine Ratio 10 mg/mg Normal 5-25 [facility] Comment on above: Performed By: #### 1 [id number] ####[facility] [address] [place] [address] Calcium 9.3 mg/dL Normal 8.6-10.3 [facility] Comment on above: Performed By: #### 1 [id number] ####[facility] [address] [place] [address] Chloride 107 mmol/L Normal 98-107 [facility] Comment on above: Performed By: #### 1 [id number] ####[facility] [address] [place] [address] Creatinine 0.79 mg/dL Normal 0.50-1.05 [facility] Comment on above: Performed By: #### 1 [id number] ####[facility] [address] [place] [address] eGFR (MDRD) mL/min/{1.73_m2} Normal [facility] Comment on above: Result Comment: Inte rpretation for Chronic Kidney Disease:Stages 1&2 >60 Healthy or potential kidney damage.Mild decrease of GFR.Stage 3 30-59 Moderate decrease of GFR.Stage 4 15-29 Severe decrease of GFR.Stage 5 <15 Kidney failure or on dialysis. Performed By: #### 1 [id number] ####[facility] [address] [place] [address] Glucose mass conc 82 mg/dL Normal 70-100 [facility] Comment on above: Performed By: #### 1 [id number] ####[facility] [address] [place] [address] Potassium molar conc 3.9 mmol/L Normal 3.5-5.1 [facility] Comment on above: Performed By: #### 1 [id number] ####[facility] [address] [place] [address] Sodium 140 mmol/L Normal 136-145 [facility] Comment on above: Performed By: #### 1 253705 ####[facility] [address] [place] [address] Urea nitrogen 8 mg/dL Normal 6-23 [facility] are Comment on above: Performed By: #### 1 [id number] ####[facility] [address] [place] [address] CBC With Differentialon 09-20 Basophils Auto #/vol (Bld) 0.04 10*3/uL Normal 0.01-0.07 [facility] Comment on above: Performed By: #### 2 [id number] ####[facility] [address] [place] [address] Basophils/100 WBC Auto (Bld) 0.5 % Normal 0.1-1.2 [facility] Comment on above: Performed By: #### 2 [id number] ####[facility] [address] [place] [address] Eosinophils 0.31 10*3/uL Normal 0.04-0.50 [facility] are Comment on above: Performed By: #### 2 [id number] ####[facility] [address] [place] [address] Eosinophils/100 leukocytes 4.0 % Normal 0.0-8.1 [facility] Comment on above: Performed By: #### 2 [id number] ####[facility] [address] [place] [address] Erythrocyte distribution width Auto Ratio (RBC) 12.8 % Normal 12.0-15.4 [facility] Comment on above: Performed By: #### 2 [id number] ####[facility] [address] [place] [address] Erythrocytes (RBC) 4.61 10*6/uL Normal 3.85-5.10 [facility] Comment on above: Performed By: #### 2 704422 ####[facility] [address] [place] [address] Erythrocytes (RBC) 0.0 /100{WBCs} Normal [facility] Comment on above: Performed By: #### 2 [id number] ####[address] [place] [address] Erythrocytes (RBC) 0.00 10*3/uL Normal [facility] Comment on above: Performed By: #### 2 562341 ####[facility] [address] [place] [address] Hematocrit (HCT) 40.5 % Normal 36.5-46.6 [facility] Comment on above: Performed By: #### 2 073921 ####[facility] [address] [place] [address] Hemoglobin mass conc (Bld) 13.1 g/dL Normal 11.8-15.3 [facility] Comment on above: Performed By: #### 2 084285 ####[facility] [address] [place] [address] Imm Grans Absolute 0.02 10*3/uL Normal 0.00-0.21 [facility] Comment on above: Performed By: #### 2 437042 ####[facility] [address] [place] [address] Immature granulocytes #/vol (Bld) 0.3 % Normal [facility] Comment on above: Performed By: #### 2 091327 ####[facility] [address] [place] [address] Lymphocytes 0.82 10*3/uL Normal 0.40-2.84 [facility] Comment on above: Performed By: #### 2 610342 ####[facility] [address] [place] [address] Lymphocytes/100 leukocytes 10.7 % Low 15.7-50.5 [facility] Comment on above: Performed By: #### 2 751671 ####[facility] [address] [place] [address] MCH 28.4 pg Normal 27.5-33.0 [facility] Comment on above: Performed By: #### 2 [id number] ####[facility] [address] [place] [address] MCHC mass conc (RBC) 32.3 g/dL Normal 30.1-35.0 [facility] Comment on above: Performed By: #### 2 579079 ####[facility] [address] [place] [address] MCV 87.9 fL Normal 85.4-100.0 [facility] Comment on above: Performed By: #### 2 586015 ####[facility] [address] [place] [address] Monocytes 0.75 10*3/uL Normal 0.25-0.83 [facility] Comment on above: Performed By: #### 2 573637 ####[facility] [address] [place] [address] Monocytes/100 leukocytes 9.8 % Normal 4.8-12.7 [facility] Comment on above: Performed By: #### 2 082409 ####[facility] [address] [place] [address] Neutrophils 5.72 10*3/uL Normal 1.95-6.85 [facility] Comment on above: Performed By: #### 2 508666 ####[facility] [address] [place] [address] Neutrophils/100 leukocytes 74.7 % High 36.8-73.2 [facility] Comment on above: Performed By: #### 2 377523 ####[facility] [address] [place] [address] Platelet mean volume (PMV) 10.3 fL Normal 9.9-12.1 [facility] Comment on above: Performed By: #### 2 [id number] ####[facility] [address] [place] [address] Platelets 213 10*3/uL Normal 155-404 [facility] Comment on above: Performed By: #### 2 031296 ####[facility] [address] [place] [address] RDW SD 41.0 fL Normal 39.3-48.6 [facility] Comment on above: Performed By: #### 2 225904 ####[facility] [address] [place] [address] WBC (Leukocytes) 7.7 10*3/uL Normal 4.4-9.9 [facility] Comment on above: Performed By: #### 2 076134 ####[facility] [address] [place] [address] Culture Urineon 10-06-2017 Culture Urine FINAL REPORT Urine <1,000 cfu/ml--No growth Normal [facility] Comment on above: Performed By: #### 6 [id number] ####[facility] [address] [place] [address] PELVIC NON-OB FEMALE ECHOon 10-06-2017 PELVIC NON-OB FEMALE ECHO DATE OF EXAM: Oct 06 2017 3:02PMCLINICAL HISTORY/ Name: DESTINEY NEWBYANDASTUDY:US PELVIC/TV - NC; 10/06/2017 3:02 pmINDICATION:Pelvic pain.COMPARISON:None.AC CESSION NUMBER(S):[id number] ERING CLINICIAN:MARK CARABALLONIQUE:Multipl e multiplanar static gold scale, color and spectral waveform sonographic images of the pelvis were obtained. Transabdominal and endovaginal ultrasound was performed.FINDINGS:UTER US:The uterus is grossly unremarkable in appearance.The uterus measures at 7.8 cm in length and 2.9 x 4.6 cm in AP and transverse diameters.ENDOMETRIUM:A n intrauterine device is identified within the endometrial canal. The endometrium measures a thickness of 2 mm, which is normal.RIGHT ADNEXA:The right ovary measures at 3.4 x 2.2 x 1.8 cm.Normal-appearing color Doppler flow is seen in the right ovary.No right adnexal mass is identified.LEFT ADNEXA:The left ovary measures at 3.6 x 1.9 x 2.3 cm.Normal-appearing color Doppler flow is seen in the left ovary.No left adnexal masses identified.CUL DE SAC:No free fluid is identified.CONCLUSION: IMPRESSION:1. Intrauterine device within the endometrial canal.2. Otherwise unremarkable ultrasound appearance of the pelvis. Normal [facility] Test (Serum)on Test, Serum Negative Normal [facility] Comment on above: Performed By: #### 3 [id number] ####[facility] [address] [place] [address] US PELVIC/TV - NCon 10-06-19 18 US PELVIC/TV - NC DATE OF EXAM: Oct 06 2017 3:02PMCLINICAL HISTORY/ Name: DESTINEY NEWBYANDASTUDY:US PELVIC/TV - NC; 10/06/2017 3:02 pmINDICATION:Pelvic pain.COMPARISON:None. CESSION NUMBER(S):[id number] ERING CLINICIAN:MARK GUQUE:Multipl e multiplanar static gold scale, color and spectral waveform sonographic images of the pelvis were obtained. Transabdominal and endovaginal ultrasound was performed.FINDINGS:UTER US:The uterus is grossly unremarkable in appearance.The uterus measures at 7.8 cm in length and 2.9 x 4.6 cm in AP and transverse diameters.ENDOMETRIUM:A n intrauterine device is identified within the endometrial canal. The endometrium measures a thickness of 2 mm, which is normal.RIGHT ADNEXA:The right ovary measures at 3.4 x 2.2 x 1.8 cm.Normal-appearing color Doppler flow is seen in the right ovary.No right adnexal mass is identified.LEFT ADNEXA:The left ovary measures at 3.6 x 1.9 x 2.3 cm.Normal-appearing color Doppler flow is seen in the left ovary.No left adnexal masses identified.CUL DE SAC:No free fluid is identified.CONCLUSION: IMPRESSION:1. Intrauterine device within the endometrial canal.2. Otherwise unremarkable ultrasound appearance of the pelvis. Normal [facility] Urinalysis with Reflex Cultu reon 10-06-2017 Ascorbic Acid Negative Normal Negative [facility] Comment on above: Performed By: #### U ARFX ####[facility] [address] [place] [facility] [place] [address] Automated Urine Microscopy Performed Normal [facility] Comment on above: Performed By: #### U ARFX ####[facility] [address] [place] [address] Bilirubin Ql (U) Negative Normal Negative [facility] Comment on above: Performed By: #### U ARFX ####[facility] [address] [place] [address] Blood Small Abnormal Negative [facility] Comment on above: Performed By: #### U ARFX ####[facility] [address] [place] [address] Erythrocytes (RBC) 2 /[HPF] Normal 0-3 [facility] Comment on above: Performed By: #### U ARFX ####[facility] [address] [place] [address] Glucose mass conc Negative Normal Negative [facility] Comment on above: Performed By: #### U ARFX ####[facility] [address] [place] [facility] [place] [address] Mucous Rare Normal None [facility] Comment on above: Performed By: #### U ARFX ####[facility] [address] [facility] [place] [address] Protein Negative Normal Negative [facility] Comment on above: Performed By: #### U ARFX ####[facility] [address] [facility] [place] [address] Urine, appearance Hazy Normal Clear [facility] Comment on above: Performed By: #### U ARFX ####[facility] [address] [place] [address] Urine, color Yellow Normal [facility] Comment on above: Performed By: #### U ARFX ####[facility] [address] [place] [address] Urine, ketones presence Negative Normal Negative [facility] Comment on above: Performed By: #### U ARFX ####[facility] [address] [place] [address] Urine, nitrite presence Negative Normal Negative [facility] Comment on above: Performed By: #### U ARFX ####[facility] [address] [place] [address] Urine, pH 5.0 [pH] Normal 5.0-9.0 [facility] Comment on above: Performed By: #### U ARFX ####[facility] [address] [place] [address] Urine, specific gravity 1.012 Normal 1.003-1.035 [facility] Comment on above: Performed By: #### U ARFX ####[facility] [address] [place] [address] Urine, urobilinogen <2.0 Normal Negative [facility] Comment on above: Performed By: #### U ARFX ####[facility] [address] [place] [address] WBC (Leukocytes) 5 /[HPF] Normal 0-5 [facility] Comment on above: Performed By: #### U ARFX ####[facility] [address] [place] [address] WBC (Leukocytes) Negative Normal Negative [facility] Comment on above: Performed By: #### U ARFX ####[facility] [address] [place] [address] WBC (Leukocytes) Occasional Normal None [facility] Comment on above: Performed By: #### U ARFX ####[facility] [address] [place] [address] Vital Signs Date Time Vital Sign Value Performing Clinician Facility 07-14-2024 14:45-0500 Body height 165.1 cm Erika Norrismelissa SENIOR TECHNICAL SUPPORT ANALYST Work Phone: [facility] 07-14-2024 14:45-0500 Body mass index (BMI) [Ratio] 26.33 kg/m2 Erika Seraholz SENIOR TECHNICAL SUPPORT ANALYST Work Phone: [facility] 07-14-2024 14:45-0500 Body temperature 98.71 [degF] Erika Seraholz SENIOR TECHNICAL SUPPORT ANALYST Work Phone: [facility] 07-14-2024 14:45-0500 Body weight 71.76 kg Erika Vinihholz SENIOR TECHNICAL SUPPORT ANALYST Work Phone: [facility] 07-14-2024 14:45-0500 Diastolic blood pressure 78 mm[Hg] Erika Seraholz SENIOR TECHNICAL SUPPORT ANALYST Work Phone: [facility] 07-14-2024 14:45-0500 Heart rate 78 /min Erika Seraholz SENIOR TECHNICAL SUPPORT ANALYST Work Phone: [facility] 07-14-2024 14:45-0500 Respiratory rate 18 /min Erika Vinihholz SENIOR TECHNICAL SUPPORT ANALYST Work Phone: [facility] 07-14-2024 14:45-0500 SaO2% (BldA) [Mass fraction] 98 % Erika Seraholz SENIOR TECHNICAL SUPPORT ANALYST Work Phone: [facility] 07-14-2024 14:45-0500 Systolic blood pressure 112 mm[Hg] Erika Seraholz SENIOR TECHNICAL SUPPORT ANALYST Work Phone: [facility] 06-02-2024 14:26-0400 Body height 165.1 cm Erika Vinihholz SENIOR TECHNICAL SUPPORT ANALYST Work Phone: [facility] 06-02-2024 14:26-0400 Body mass index (BMI) [Ratio] 25.49 kg/m2 Erika Vinihholz SENIOR TECHNICAL SUPPORT ANALYST Work Phone: [facility] 06-02-2024 14:26-0400 Body temperature 98.1 [degF] Erika Aichholz SENIOR TECHNICAL SUPPORT ANALYST Work Phone: [facility] 06-02-2024 14:26-0400 Body weight 69.49 kg Erika Norrisz SENIOR TECHNICAL SUPPORT ANALYST Work Phone: [facility] 06-02-2024 14:26-0400 Diastolic blood pressure 76 mm[Hg] Erikavalencia Martinihholz SENIOR TECHNICAL SUPPORT ANALYST Work Phone: [facility] 06-02-2024 14:26-0400 Heart rate 82 /min Erika Seraholz SENIOR TECHNICAL SUPPORT ANALYST Work Phone: [facility] 06-02-2024 14:26-0400 Respiratory rate 18 /min Erika Vinihholz SENIOR TECHNICAL SUPPORT ANALYST Work Phone: [facility] 06-02-2024 14:26-0400 SaO2% (BldA) [Mass fraction] 97 % Erikavalencia Martinihholz SENIOR TECHNICAL SUPPORT ANALYST Work Phone: [facility] 06-02-2024 14:26-0400 Systolic blood pressure 104 mm[Hg] Erika Zamoraholz SENIOR TECHNICAL SUPPORT ANALYST Work Phone: [facility] 05-22-2024 16:40-0400 Blood Pressure Location [facility] 05-22-2024 16:40-0400 Body temperature 100.76 [degF] SEAN RODAS [facility] 05-22-2024 16:40-0400 Diastolic blood pressure 68 mm[Hg] SEAN RODAS [facility] 05-22-2024 16:40-0400 Heart rate 71 /min SEAN RODAS [facility] 05-22-2024 16:40-0400 SaO2% (BldA) [Mass fraction] 99 % SEAN RODAS [facility] 05-22-2024 16:40-0400 Systolic blood pressure 112 mm[Hg] SEAN RODAS [facility] 05-01-2024 13:36-0400 Body mass index (BMI) [Ratio] 25.33 kg/m2 Erika Tyshawn SENIOR TECHNICAL SUPPORT ANALYST Work Phone: [facility] 05-01-2024 13:36-0400 Body temperature 97.81 [degF] Erika Tyshawn SENIOR TECHNICAL SUPPORT ANALYST Work Phone: [facility] 05-01-2024 13:36-0400 Body weight 69.04 kg Erika Vininereidajose SENIOR TECHNICAL SUPPORT ANALYST Work Phone: [facility] 05-01-2024 13:36-0400 Diastolic blood pressure 78 mm[Hg] Erika Vininereidajose SENIOR TECHNICAL SUPPORT ANALYST Work Phone: [facility] 05-01-2024 13:36-0400 Heart rate 94 /min Erika Tyshawn SENIOR TECHNICAL SUPPORT ANALYST Work Phone: [facility] 05-01-2024 13:36-0400 Respiratory rate 18 /min Erika Zamorajose SENIOR TECHNICAL SUPPORT ANALYST Work Phone: [facility] 05-01-2024 13:36-0400 SaO2% (BldA) [Mass fraction] 96 % Erikavalencia Zamorajose SENIOR TECHNICAL SUPPORT ANALYST Work Phone: [facility] 05-01-2024 13:36-0400 Systolic blood pressure 110 mm[Hg] Erika Tyshawn SENIOR TECHNICAL SUPPORT ANALYST Work Phone: [facility] 04-21-2023 09:21-0400 SaO2% (BldA) [Mass fraction] 95 % Physician None Work Phone: [facility] 04-21-2023 08:05-0400 Body temperature 98.2 [degF] Physician None Work Phone: [facility] 04-21-2023 08:05-0400 Diastolic blood pressure 108 mm[Hg] Physician None Work Phone: [facility] 04-21-2023 08:05-0400 Heart rate 103 /min Physician None Work Phone: [facility] 04-21-2023 08:05-0400 Respiratory rate 17 /min Physician None Work Phone: [facility] 04-21-2023 08:05-0400 Systolic blood pressure 132 mm[Hg] Physician None Work Phone: [facility] 04-21-2023 08:01-0400 Body height 165.1 cm Physician None Work Phone: [facility] 04-21-2023 08:01-0400 Body mass index (BMI) [Ratio] 25 kg/m2 Physician None Work Phone: [facility] 04-21-2023 08:01-0400 Body weight 68.03 kg Physician None Work Phone: [facility] 07-12-2022 11:40-0500 Body height 165.1 cm Ana María Hanna Other [employer] [facility] 07-12-2022 11:40-0500 Body mass index (BMI) [Ratio] 25.79 kg/m2 Ana María Hanna Other [employer] Other 07-12-2022 11:40-0500 Body temperature 98.2 [degF] Ana María Hanna Other [employer] Other 07-12-2022 11:40-0500 Body weight 70.31 kg Ana María Hanna Other [facility] Other 07-12-2022 11:40-0500 Respiratory rate 18 /min Ana María Hanna Other [facility] Other 07-12-2022 11:40-0500 SaO2% (BldA) [Mass fraction] 99 % Ana María Hanna Other [employer] Other 07-06-2022 11:50-0500 Body height 165.1 cm Hannah Calvo Other [employer] Other 07-06-2022 11:50-0500 Body mass index (BMI) [Ratio] 25.79 kg/m2 Hannah Calvo Other [facility] Other 07-06-2022 11:50-0500 Body temperature 98 [degF] Ahnnah Calvo Other [employer] Other 07-06-2022 11:50-0500 Body weight 70.31 kg Hannah Calvo Other [facility] Other 07-06-2022 11:50-0500 Respiratory rate 18 /min Hannah Calvo Other [facility] Other 07-06-2022 11:50-0500 SaO2% (BldA) [Mass fraction] 98 % Hannah Calvo Other [employer] Other Encounters Encounter Date Encounter Type Care Provider Facility Start: 07-14-2024 End: 07-14-2024 ambulatory ERIKA VILLAGRAN Not Available Start: 07-14-2024 End: 07-14-2024 Office outpatient visit 15 minutes Erika Villagran SENIOR TECHNICAL SUPPORT ANALYST Work Phone: [facility] Comment on above: Generalized anxiety disorder (CMS/HCC) (Primary Dx); Primary insomnia Start: 07-14-2024 End: 07-14-2024 Bamboo flowsheet Erika Villagran SENIOR TECHNICAL SUPPORT ANALYST Work Phone: [facility] Start: 07-14-2024 End: 07-14-2024 Bamboo flowsheet Erika Villagran SENIOR TECHNICAL SUPPORT ANALYST Work Phone: [facility] Start: 06-02-2024 End: 06-02-2024 ambulatory ERIKA AICHHOLZ Not Available Start: 06-02-2024 End: 06-02-2024 Office outpatient visit 15 minutes Erika Aichholz SENIOR TECHNICAL SUPPORT ANALYST Work Phone: [facility] Comment on above: Generalized anxiety disorder (CMS/HCC) (Primary Dx); Primary insomnia Start: 06-02-2024 End: 06-02-2024 Bamboo flowsheet Erika Aichholz SENIOR TECHNICAL SUPPORT ANALYST Work Phone: [facility] Start: 06-02-2024 End: 06-02-2024 Bamboo flowsheet Erika Aichholz SENIOR TECHNICAL SUPPORT ANALYST Work Phone: [facility] Start: 05-22-2024 End: 05-22-2024 ambulatory ALBERT RODAS Facility:[facility] Start: 05-22-2024 End: 05-22-2024 Patient encounter procedure SEAN RODAS [facility] Start: 05-01-2024 End: 05-01-2024 Bamboo flowsheet Erika Aichholz SENIOR TECHNICAL SUPPORT ANALYST Work Phone: [facility] Start: 05-01-2024 End: 05-01-2024 Bamboo flowsheet Erika Aichholz SENIOR TECHNICAL SUPPORT ANALYST Work Phone: [facility] Start: 05-01-2024 End: 05-01-2024 ambulatory ERIKA AICHHOLZ Not Available Start: 05-01-2024 End: 05-01-2024 Office outpatient visit 15 minutes Erika Aichholz SENIOR TECHNICAL SUPPORT ANALYST Work Phone: [facility] Comment on above: Generalized anxiety disorder (CMS/HCC) (Primary Dx) Start: 08-14-2023 End: 08-14-2023 ambulatory SHOLA ABDIEL Not Available Start: 07-19-2023 End: 07-19-2023 ambulatory SHOLA ABDIEL Not Available Start: 04-21-2023 End: 04-21-2023 Emergency department patient visit Sherman Masters Facility:[facility] Start: 04-21-2023 End: 04-21-2023 Emergency department patient visit Physician None Work Phone: [facility] Start: 08-07-2022 End: 08-07-[address] SHOLA QUINONEZ Facility:[facility] Start: 07-12-2022 End: 07-12-2022 ambulatory Ana María Hanna Other [employer] Other Start: 07-12-2022 Office outpatient vi sit 15 minutes Ana Maríabrian Hanna [facility] Start: 07-06-2022 End: 07-06-2022 ambulatory Hannah Calvo Other [employer] Other Start: 07-06-2022 Office outpatient vi sit 25 minutes Hannah Calvo [facility] Start: 05-17-2022 Encounter for preprocedural laboratory examination DR SHOLA QUINONEZ [facility] Start: 05-17-2022 End: 05-18-2022 Evaluation and management of inpatient DR SHOLA QUINONEZ Facility:[facility] Start: 05-15-2022 End: 05-16-[address] SHOLA QUINONEZ Facility:[facility] Start: 05-15-2022 End: 05-16-2022 Encounter for preprocedural laboratory examination DR SHOLA QUINONEZ Facility:[facility] Start: 04-26-2022 End: 04-26-[address] SHOLA QUINONEZ Facility:[facility] Start: 02-22-2022 End: 02-23-[address] SHOLA QUINONEZ Facility:[facility] Start: 01-05-2022 End: 01-06-[address] SHOLA QUINONEZ Facility:[facility] Start: 12-29-2021 End: 12-29-[address] SHOLA QUINONEZ Facility:[facility] Start: 11-01-2021 End: 11-02-[address] SHOLA QUINONEZ Facility:[facility] Start: 09-30-2021 End: 10-01-[address] SHOLA QUINONEZ Facility:[facility] Start: 10-06-2017 End: 10-06-2017 Emergency department patient visit CAROLYN CARRILLO Facility:[facility] Start: 10-06-2017 Ambulatory Facility:[id number] Procedures Date Procedure Procedure Detail Performing Clinician Start: 04-21-2023 X-ray of left ankle Phy sician None Work Phone: Start: 04-21-2023 X-ray of left foot Phys ician None Work Phone: Start: 05-17-2022 Extraction of Produc ts of Conception, Low Cervical, Open Approach DR SHOLA QUINONEZ Plan of Treatment Date Care Activity Detail Author Start: 01-08-2025 End: 01-08-2025 Patient encounter procedure 01/08/2025 2:20 PM EDT Office Visit [facility] [address] [place] [phone] Erika Villagran NP [address] [place] [phone] [facility] Start: 09-01-2024 End: 09-01-2024 Patient encounter procedure 09/01/2024 3:00 PM EST Office Visit [facility] [address] [place] [id number] Shola Quinonez DO [address] [address] [facility] Start: 07-14-2024 End: 07-14-2024 Patient encounter procedure 07/14/2024 2:40 PM EST Office Visit [facility] [address] [place] [phone] Erika Villagran, DEDRA [address] [place] [phone] [facility] Start: 06-19-2024 Influenza vaccination Influenz a Vaccine (#1) [facility] Comment on above: Postponed from 04/20 (Patient Does Not Have Time) Start: 06-02-2024 End: 06-02-2024 Patient encounter procedure 06/02/2024 2:20 PM EDT Office Visit [facility] [address] [place] [address] Erika Villagran NP [address] [place] [phone] [facility] Start: 04-20-2024 Influenza vaccination Influenz a Vaccine (#1) [facility] Patient Education Foot Fracture in Adults (ED) [facility] Work Phone: Patient referral [facility] Work Phone: Immunizations Immunization Date Immunization Notes Care Provider Fa cility 06-22-2024 influenza virus vaccine, unspecified formulation Erika Villagran SENIOR TECHNICAL SUPPORT ANALYST Work Phone: [facility] 08-18-2022 influenza virus vaccine, unspecified formulation Erika Tyshawn SENIOR TECHNICAL SUPPORT ANALYST Work Phone: [facility] 08-18-2022 influenza, injectabl e, quadrivalent, preservative free Erika Tyshawn SENIOR TECHNICAL SUPPORT ANALYST Work Phone: [facility] 05-18-2022 diphtheria, tetanus toxoids and pertussis vaccine Erika Villagran SENIOR TECHNICAL SUPPORT ANALYST Work Phone: [facility] 07-28-2021 SARS-CoV-2 (COVID-19 ) mRNA-[id number] vaccine SEAN RODAS [facility] Comment on above: Result Comment: 2023: [facility] 07-04-2021 SARS-CoV-2 (COVID-19 ) mRNA-1273 vaccine SEAN RODAS [facility] Comment on above: Result Comment: 2023: [facility] 05-05-2020 influenza virus vaccine, unspecified formulation SEAN RODAS [facility] 05-05-2020 influenza, injectabl e, quadrivalent, contains preservative Erika Aichholz SENIOR TECHNICAL SUPPORT ANALYST Work Phone: [facility] 06-20-2019 influenza virus vaccine, unspecified formulation SEAN RODAS [facility] 06-20-2019 influenza, injectabl e, quadrivalent, contains preservative Erika Aichholz SENIOR TECHNICAL SUPPORT ANALYST Work Phone: [facility] 06-20-2019 measles, mumps and rubella virus vaccine Erika Aichholz SENIOR TECHNICAL SUPPORT ANALYST Work Phone: [facility] 05-17-2017 tetanus toxoid, reduced diphtheria toxoid, and acellular pertussis vaccine, adsorbed Erika Aichholz SENIOR TECHNICAL SUPPORT ANALYST Work Phone: [facility] 06-30-2009 novel [id number], preservative-free, injectable Erika Aichholz SENIOR TECHNICAL SUPPORT ANALYST Work Phone: [facility] 06-20-2007 influenza virus vaccine, unspecified formulation SEAN RODAS [facility] 06-20-2007 influenza, seasonal, injectable Erika Aichholz SENIOR TECHNICAL SUPPORT ANALYST Work Phone: [facility] 11-19-2000 diphtheria, tetanus toxoids and acellular pertussis vaccine Erika Aichholz SENIOR TECHNICAL SUPPORT ANALYST Work Phone: [facility] 11-19-2000 diphtheria, tetanus toxoids and acellular pertussis vaccine, unspecified formulation Erika Aichholz SENIOR TECHNICAL SUPPORT ANALYST Work Phone: [facility] 11-19-2000 DTaP, unspecified formulation SEAN RODAS [facility] 11-19-2000 measles, mumps and rubella virus vaccine Erika Aichholz SENIOR TECHNICAL SUPPORT ANALYST Work Phone: [facility] 11-19-2000 poliovirus vaccine, unspecified formulation Erika Aichholz SENIOR TECHNICAL SUPPORT ANALYST Work Phone: [facility] 09-04-1997 varicella virus vaccine Erika Aicnereidaholz SENIOR TECHNICAL SUPPORT ANALYST Work Phone: [facility] 05-14-1997 measles, mumps and rubella virus vaccine Erika Aicnereidaholz SENIOR TECHNICAL SUPPORT ANALYST Work Phone: [facility] 1996 hepatitis B vaccine, pediatric or pediatric/adolescent dosage Erika Aicnereidaholz SENIOR TECHNICAL SUPPORT ANALYST Work Phone: [facility] 1996 hepatitis B vaccine, pediatric or pediatric/adolescent dosage Erika Aichholz SENIOR TECHNICAL SUPPORT ANALYST Work Phone: [facility] 1996 hepatitis B vaccine, pediatric or pediatric/adolescent dosage Erika Aichholz SENIOR TECHNICAL SUPPORT ANALYST Work Phone: [facility] Payers Date Payer Category Payer Blue Cross Blue Shield [facility] [id number] 2022 Unknown BCBS BCBS [id number] 2022-Present [phone] [place] [id number] 2022 Blue Cross Blue Shield [id number] 2019 Unknown [id number] 1996 Unknown [id number] 2.16.840.1.071494.3.579.2. 593 1996 Unknown [id number] 2.16.840.1.885892.3.579.2. 593 1996 Unknown [id number] 2.16.840.1.028157.3.579.2. 593 1996 Unknown [id number] 2.16.840.1.191907.3.579.2. 593 1996 Unknown [id number] 2.16.840.1.152460.3.579.2. 593 1996 Unknown [id number] 2.16.840.1.108667.3.579.2. 593 1996 Unknown [id number] 2.16.840.1.464980.3.579.2. 593 1996 Unknown [id number] 2.16.840.1.419562.3.579.2. 593 1996 Unknown [id number] 2.16.840.1.325461.3.579.2. 593 1996 Unknown [id number] 2.16.840.1.990083.3.579.2. 727 1996 Unknown [id number] 2.16.840.1.614146.3.579.2. 1259 1996 Unknown [id number] 2.16.840.1.962547.3.579.2. 1259 1996 Unknown [id number] 2.16.840.1.855688.3.579.2. 1259 1996 Unknown [id number] 2.16.840.1.090795.3.579.2. 1259 1996 Unknown [id number] 2.16.840.1.888384.3.579.2. 1259 1959 Self-pay Private Health Insurance [id number] Unknown [id number] 2.16.840.1.516497.3.579.2. 593 Unknown [id number] 2.16.840.1.302942.3.579.2. 139 Social History Date Type Detail Facility Unknown if ever smoked [facility] Other Start: 04-24-2023 End: 05-01-2024 Sex Assigned At [facility] Start: 04-21-2023 End: 04-24-2023 Tobacco smoking status NHIS Never smoked tobacco (finding) [facility] Start: 04-21-2023 Socially/Occasionally [facility] Start: 04-21-2023 <1/Day [facility] Start: 1995 Sex Assigned At Female [facility] Tobacco smoking status Never [facility] Start: 04-24-2023 Tobacco use and exposure Smokeless tobacco non-user [facility] Start: 05-01-2024 End: 06-02-2024 Alcoholic beverage intake Current drinker of alcohol (finding) [facility] Start: 05-01-2024 End: 06-02-2024 Alcoholic beverage intake [facility] Do you belong to any clubs or organizations such as scientology groups, unions, fraternal or athletic groups, or school groups? No [facility] Are you now , , , , never or living with a partner? Never [facility] How often to you hav e a drink containing alcohol? 2-4 times a month [facility] How many standard dr inks containing alcohol do you have on a typical day? 3 or 4 [facility] How often do you hav e 6 or more drinks on 1 occasion? Less than monthly [facility] How hard is it for y ou to pay for the very basics like food, housing, medical care, and heating Not very hard [facility] Do you feel stress - tense, restless, nervous, or anxious, or unable to sleep at night because your mind is troubled all the time - these days [OSQ] Very much [facility] (I/We) worried wheth er (my/our) food would run out before (I/we) got money to buy more. Never true [facility] Start: 06-03-2023 Alcohol Comment caffeine > 4 cups/day [facility] Start: 04-24-2023 Gender identity Identifies as female gender (finding) [facility] Functional Status Date Assessment Result Facility 05-22-2024 Functional Status N/A [facility] 04-21-2023 Functional status Independent [facility] Work Phone: Mental Status Date Assessment Result Facility 04-21-2023 Cognitive function Oriented to P erson, Place and Time [facility] Work Phone: Clinical Notes 05-17-2022 to 07-14-2024 Erika Villagran, SENIOR TECHNICAL SUPPORT ANALYST - 07/14/2024 2:40 PM ESTLisa Tyshawn, SENIOR TECHNICAL SUPPORT ANALYST - 07/14/2024 7:44 AM ESTLisa Tyshawn, SENIOR TECHNICAL SUPPORT ANALYST - 07/14/2024 7:44 AM ESTPatient InstructionsLisa Villagran, SENIOR TECHNICAL SUPPORT ANALYST - 06/02/2024 2:49 PM EDT Note Date & Type Note Facility 07-14-2024 History of Presen t illness Narrative Images from the original note were not included. Letha Newby is a 29 y.o. female presents with chief complaint of No chief complaint on file. HPI: Recheck zoloft for BARBARA: is doing well with medications, no side effects No chest pain/pressure/dyspnea, sleep is ok. No SI/HI/Hallucinations Appetite ok, SUBJECTIVE: MEDICATIONS: Current Outpatient Medications Medication Instructions sertraline (ZOLOFT) 50 mg, Oral, Daily zolpidem (AMBIEN) 5 mg, Oral, Nightly PRN ALLERGIES: No Known Allergies REVIEW OF SYMPTOMS: Review of Systems Constitutional: Negative for appetite change, chills and fever. HENT: Negative for congestion, ear pain and sore throat. Eyes: Negative for pain, discharge, redness and visual disturbance. Respiratory: Negative for cough, shortness of breath and wheezing. Cardiovascular: Negative for chest pain, palpitations and leg swelling. Gastrointestinal: Negative for abdominal pain, blood in stool, constipation, diarrhea, nausea and vomiting. Genitourinary: Negative for difficulty urinating, dysuria and frequency. Musculoskeletal: Negative for arthralgias, back pain, joint swelling and myalgias. Skin: Negative for rash and wound. Neurological: Negative for dizziness, tremors, seizures, syncope and headaches. Psychiatric/Behavioral: Negative for behavioral problems, self-injury and suicidal ideas. The patient is not nervous/anxious. Hematological: Does not bruise/bleed easily. Endocrine: Negative for polydipsia, polyphagia and polyuria. Allergic/Immunologic: Negative for environmental allergies and food allergies. PAST MEDICAL HISTORY Past Medical History: Diagnosis Date Abnormal Pap smear of cervix Abnormal pap - HPV Dysplasia of cervix, low grade (MARIN 1) 11/15/2018 MARIN 1 and focal MARIN 2 History of medical treatment gardasil immunization completed X 3 IBS (irritable bowel syndrome) LGSIL on Pap smear of cervix LGSIL pap (01/22/17) Seasonal allergies UTI (urinary tract infection) Varicella zoster Past Surgical History: Procedure Laterality Date SECTION, LOW TRANSVERSE 05/17/2022 COLONOSCOPY 09/2018 normal (IBS) COLPOSCOPY 02/19/2017 during , no biopsy COLPOSCOPY 11/15/2018 MARIN 2 family history includes Diabetes in her father and paternal grandmother; Emphysema in her maternal grandmother; Hypertension in her father, maternal grandfather, and paternal grandfather; blood clot in legs in her maternal grandmother; epilepsy in her mother's sister; seasonal allergies in her paternal grandmother; varicose veins in her mother. OBJECTIVE: Visit Vitals BP 112/78 (BP Location: Left arm, Patient Position: Sitting, BP Cuff Size: Adult long) Pulse 78 Temp 98.7 F (Temporal) Resp 18 Ht 5' 5 Wt 158 lb 3.2 oz SpO2 98% BMI 26.33 kg/m Smoking Status Never BSA 1.81 m Physical Exam Vitals and nursing note reviewed. Constitutional: General: She is not in acute distress. Appearance: Normal appearance. HENT: Head: Normocephalic and atraumatic. Right Ear: External ear normal. Left Ear: External ear normal. Nose: Nose normal. Mouth/Throat: Mouth: Mucous membranes are moist. Eyes: Extraocular Movements: Extraocular movements intact. Conjunctiva/sclera: Conjunctivae normal. Cardiovascular: Rate and Rhythm: Normal rate and regular rhythm. Pulses: Normal pulses. Heart sounds: Normal heart sounds. Pulmonary: Effort: Pulmonary effort is normal. Breath sounds: Normal breath sounds. Abdominal: General: Bowel sounds are normal. There is no distension. Palpations: Abdomen is soft. There is no mass. Tenderness: There is no abdominal tenderness. Musculoskeletal: General: Normal range of motion. Cervical back: Normal range of motion and neck supple. Right lower leg: No edema. Left lower leg: No edema. Skin: General: Skin is warm and dry. Capillary Refill: Capillary refill takes 2 to 3 seconds. Findings: No rash. Neurological: General: No focal deficit present. Mental Status: She is alert and oriented to person, place, and time. Psychiatric: Mood and Affect: Mood normal. Behavior: Behavior normal. Thought Content: Thought content normal. Judgment: Judgment normal. ASSESSMENT AND PLAN: Follow up in about 6 months (around 01/11/2025) for Recheck. 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 Associated Problem(s): Generalized anxiety disorder (CMS/HCC) Current dose sertraline is 50mg daily Recommend healthy diet and exercise to also help with stress management Fu in 6 months Associated Problem(s): Primary insomnia [facility] reviewed Ambien for PRN use [employer]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 documented in this encounter [facility] 07-14-2024 Instructions Erika Villagran NP - 07/14/2024 2:40 PM EST Recommend trying to maintain healthy diet, as well as time 3-4 times week for exercises to help with stress management documented in this encounter [facility] 06-02-2024 History of Presen t illness Narrative Associated Problem(s): Primary insomnia [facility] reviewed Ambien for PRN use Associated Problem(s): Generalized anxiety disorder (CMS/HCC) Continue with sertraline at 50mg daily Fu in 6 weeks for recheck Pt states she is feeling good, not as short fuse Pt would like a refill/restart on the ambien Images from the original note were not included. Letha Newby is a 29 y.o. female presents with chief complaint of No chief complaint on file. HPI: Here for fu of anxiety and depression: 4 weeks ago started on sertraline, and she is feeling great, less irritation, aggitation, and feels even better from depression side of things, no SI/HI or hallucinations. Would like to continue the medication. Also would like a refill of prn ambien for sleep. 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 Still has a few pills remaining from script for 2022 SUBJECTIVE: MEDICATIONS: Current Outpatient Medications Medication Instructions sertraline (ZOLOFT) 50 mg, Oral, Daily, Start with 1/2 pill daily for 7 days, then increase to 1 pill ALLERGIES: No Known Allergies REVIEW OF SYMPTOMS: Review of Systems Constitutional: Negative for appetite change, chills and fever. HENT: Negative for congestion, ear pain and sore throat. Eyes: Negative for pain, discharge, redness and visual disturbance. Respiratory: Negative for cough, shortness of breath and wheezing. Cardiovascular: Negative for chest pain, palpitations and leg swelling. Gastrointestinal: Negative for abdominal pain, blood in stool, constipation, diarrhea, nausea and vomiting. Genitourinary: Negative for difficulty urinating, dysuria and frequency. Musculoskeletal: Negative for arthralgias, back pain, joint swelling and myalgias. Skin: Negative for rash and wound. Neurological: Negative for dizziness, tremors, seizures, syncope and headaches. Psychiatric/Behavioral: Positive for sleep disturbance. Negative for behavioral problems, self-injury and suicidal ideas. The patient is nervous/anxious. Hematological: Does not bruise/bleed easily. Endocrine: Negative for polydipsia, polyphagia and polyuria. Allergic/Immunologic: Negative for environmental allergies and food allergies. PAST MEDICAL HISTORY Past Medical History: Diagnosis Date Abnormal Pap smear of cervix Abnormal pap - HPV Dysplasia of cervix, low grade (MARIN 1) 11/15/2018 MARIN 1 and focal MARIN 2 History of medical treatment gardasil immunization completed X 3 IBS (irritable bowel syndrome) LGSIL on Pap smear of cervix LGSIL pap (01/22/17) Seasonal allergies UTI (urinary tract infection) Varicella zoster Past Surgical History: Procedure Laterality Date SECTION, LOW TRANSVERSE 05/17/2022 COLONOSCOPY 09/2018 normal (IBS) COLPOSCOPY 02/19/2017 during , no biopsy COLPOSCOPY 11/15/2018 MARIN 2 family history includes Diabetes in her father and paternal grandmother; Emphysema in her maternal grandmother; Hypertension in her father, maternal grandfather, and paternal grandfather; blood clot in legs in her maternal grandmother; epilepsy in her mother's sister; seasonal allergies in her paternal grandmother; varicose veins in her mother. OBJECTIVE: Visit Vitals BP 104/76 (BP Location: Left arm, Patient Position: Sitting, BP Cuff Size: Adult long) Pulse 82 Temp 98.1 F (Temporal) Resp 18 Ht 5' 5 Wt 153 lb 3.2 oz SpO2 97% BMI 25.49 kg/m Smoking Status Never BSA 1.79 m Physical Exam Vitals and nursing note reviewed. Constitutional: General: She is not in acute distress. Appearance: Normal appearance. HENT: Head: Normocephalic and atraumatic. Right Ear: External ear normal. Left Ear: External ear normal. Nose: Nose normal. Mouth/Throat: Mouth: Mucous membranes are moist. Eyes: Extraocular Movements: Extraocular movements intact. Conjunctiva/sclera: Conjunctivae normal. Cardiovascular: Rate and Rhythm: Normal rate and regular rhythm. Pulses: Normal pulses. Heart sounds: Normal heart sounds. Pulmonary: Effort: Pulmonary effort is normal. Breath sounds: Normal breath sounds. Abdominal: General: Bowel sounds are normal. There is no distension. Palpations: Abdomen is soft. There is no mass. Tenderness: There is no abdominal tenderness. Musculoskeletal: General: Normal range of motion. Cervical back: Normal range of motion and neck supple. Skin: General: Skin is warm and dry. Capillary Refill: Capillary refill takes 2 to 3 seconds. Findings: No rash. Neurological: General: No focal deficit present. Mental Status: She is alert and oriented to person, place, and time. Psychiatric: Mood and Affect: Mood normal. Behavior: Behavior normal. Thought Content: Thought content normal. Judgment: Judgment normal. ASSESSMENT AND PLAN: No follow-ups on file. Problem List Items Addressed This Visit Generalized anxiety disorder (CMS/HCC) - Primary Continue with sertraline at 50mg daily Fu in 6 weeks for recheck Relevant Medications sertraline (Zoloft) 50 MG tablet Primary insomnia OARRS reviewed Ambien for PRN use Relevant Medications zolpidem (Ambien) 5 MG tablet documented in this encounter [facility] 05-25-2024 Note Patient Education ENT Laryngitis Laryngitis is irritation and swelling (inflammation) of your vocal cords. It causes your voice to sound hoarse and may cause you to lose your voice. Depending on the cause, this condition may go away after a short time or may last for more than 3 weeks. Treatment often involves resting your voice and using medicines to soothe your throat. What are the causes? Laryngitis that lasts for a short time may be caused by: ? An infection caused by a virus. ? Lots of talking, yelling, or singing. This is also called vocal strain. ? An infection caused by bacteria. Laryngitis that lasts for more than 3 weeks can be caused by: ? Lots of talking, yelling, or singing. ? An injury to the vocal cords. ? Acid reflux. ? Allergies. ? Sinus infection. ? Mucus draining from the nose down the throat (postnasal drip). ? Smoking. ? Drinking too much alcohol. ? Breathing in chemicals or dust. ? Having growths on the vocal cords. What increases the risk? ? Smoking. ? Drinking too much alcohol. ? Having allergies. ? Breathing in fumes at work. What are the signs or symptoms? ? A change in your voice. It may sound low and hoarse. ? Loss of voice. ? Dry cough. ? Sore throat. ? Dry throat. ? Stuffy nose. How is this treated? Treatment depends on what is causing the laryngitis. Usually, treatment includes: ? Resting your voice. ? Using medicines to soothe your throat. If your laryngitis is caused by an infection from bacteria, you may need to take antibiotics. If your laryngitis is caused by a growth on your vocal cords, you may need to have a surgery to remove it. Follow these instructions at home: Medicines ? Take eawl-vrb-lqofscn and prescription medicines only as told by your doctor. ? If you were prescribed an antibiotic medicine, take it as told by your doctor. Do not stop taking it even if you start to feel better. ? Use throat lozenges or sprays to soothe your throat as told by your doctor. General instructions ? Talk as little as possible. To do this: ? Avoid whispering. ? Write instead of talking. Do this until your voice is back to normal. ? Rinse your mouth (gargle) with a salt water mixture 3?4 times a day or as needed. ? To make salt water, dissolve ??1 tsp (3?6 g) of salt in 1 cup (237 mL) of warm water. ? Do not swallow this mixture. ? Drink enough fluid to keep your pee (urine) pale yellow. ? Breathe in moist air. Use a humidifier if you live in a dry climate. ? Do not smoke or use any products that contain nicotine or tobacco. If you need help quitting, ask your doctor. Contact a doctor if: ? You have a fever. ? Your pain is worse. ? Your symptoms do not get better in 2 weeks. Get help right away if: ? You cough up blood. ? You have trouble swallowing. ? You have trouble breathing. Summary ? Laryngitis is inflammation of your vocal cords. ? This condition causes your voice to sound low and hoarse. ? Rest your voice by talking as little as possible. Also avoid whispering. ? Get help right away if you have trouble swallowing or breathing or if you cough up blood. This information is not intended to replace advice given to you by your health care provider. Make sure you discuss any questions you have with your health care provider. Document Revised: 10/24/2021 Document Reviewed: 10/24/2021 [employer] Patient Education ? 2023 [employer]. Infectious Disease Sinus Infection, Adult A sinus infection is soreness and swelling (inflammation) of your sinuses. Sinuses are hollow spaces in the bones around your face. They are located: ? Around your eyes. ? In the middle of your forehead. ? Behind your nose. ? In your cheekbones. Your sinuses and nasal passages are lined with a fluid called mucus. Mucus drains out of your sinuses. Swelling can trap mucus in your sinuses. This lets germs (bacteria, virus, or fungus) grow, which leads to infection. Most of the time, this condition is caused by a virus. What are the causes? ? Allergies. ? Asthma. ? Germs. ? Things that block your nose or sinuses. ? Growths in the nose (nasal polyps). ? Chemicals or irritants in the air. ? A fungus. This is rare. What increases the risk? ? Having a weak body defense system (immune system). ? Doing a lot of swimming or diving. ? Using nasal sprays too much. ? Smoking. What are the signs or symptoms? The main symptoms of this condition are pain and a feeling of pressure around the sinuses. Other symptoms include: ? Stuffy nose (congestion). This may make it hard to breathe through your nose. ? Runny nose (drainage). ? Soreness, swelling, and warmth in the sinuses. ? A cough that may get worse at night. ? Being unable to smell and taste. ? Mucus that collects in the throat or the back of the nose (postnasal drip). This ma (more content not included)... [facility] 05-01-2024 History of Presen t illness Narrative Associated Problem(s): Generalized anxiety disorder ([facility]) Irritates and agitates easily, worse Has trialed wellbutrin and lexpro in the past more for depression Will trial sertraline at 25mg daily for 7 days, then 50mg Take medication only as directed. This medication will take approximately 4-6 weeks to become effective. If any suicidal thoughts, thoughts of hurting others, or hallucinations contact the office or proceed to the Emergency Room for mental health evaluation. Medication may cause dry mouth, dizziness, and in some cases worsening in depression symptoms. Please contact the office if these occur. Follow up in 4 weeks Also going to use EAP through employer Images from the original note were not included. Letha Newby is a 29 y.o. female presents with chief complaint of No chief complaint on file. HPI: Anxiety Presents for initial visit. Onset was 1 to 6 months ago. The problem has been gradually worsening. Symptoms include decreased concentration, excessive worry, irritability, muscle tension and nervous/anxious behavior. Patient reports no chest pain, dizziness, insomnia, nausea, palpitations, restlessness, shortness of breath or suicidal ideas. Symptoms occur most days. The severity of symptoms is moderate. There are no known risk factors. SUBJECTIVE: MEDICATIONS: No current outpatient medications ALLERGIES: No Known Allergies REVIEW OF SYMPTOMS: Review of Systems Constitutional: Positive for irritability. Negative for appetite change, chills and fever. HENT: Negative for congestion, ear pain and sore throat. Eyes: Negative for pain, discharge, redness and visual disturbance. Respiratory: Negative for cough, shortness of breath and wheezing. Cardiovascular: Negative for chest pain, palpitations and leg swelling. Gastrointestinal: Negative for abdominal pain, blood in stool, constipation, diarrhea, nausea and vomiting. Genitourinary: Negative for difficulty urinating, dysuria and frequency. Musculoskeletal: Negative for arthralgias, back pain, joint swelling and myalgias. Skin: Negative for rash and wound. Neurological: Negative for dizziness, tremors, seizures, syncope and headaches. Psychiatric/Behavioral: Positive for decreased concentration. Negative for behavioral problems, self-injury and suicidal ideas. The patient is nervous/anxious. The patient does not have insomnia. Hematological: Does not bruise/bleed easily. Endocrine: Negative for polydipsia, polyphagia and polyuria. Allergic/Immunologic: Negative for environmental allergies and food allergies. PAST MEDICAL HISTORY Past Medical History: Diagnosis Date Abnormal Pap smear of cervix Abnormal pap - HPV Dysplasia of cervix, low grade (MARIN 1) 11/15/2018 MARIN 1 and focal MARIN 2 History of medical treatment gardasil immunization completed X 3 IBS (irritable bowel syndrome) LGSIL on Pap smear of cervix LGSIL pap (01/22/17) Seasonal allergies UTI (urinary tract infection) Varicella zoster Past Surgical History: Procedure Laterality Date SECTION, LOW TRANSVERSE 05/17/2022 COLONOSCOPY 09/2018 normal (IBS) COLPOSCOPY 02/19/2017 during , no biopsy COLPOSCOPY 11/15/2018 MARIN 2 family history includes Diabetes in her father and paternal grandmother; Emphysema in her maternal grandmother; Hypertension in her father, maternal grandfather, and paternal grandfather; blood clot in legs in her maternal grandmother; epilepsy in her mother's sister; seasonal allergies in her paternal grandmother; varicose veins in her mother. OBJECTIVE: Visit Vitals BP 110/78 (BP Location: Left arm, Patient Position: Sitting, BP Cuff Size: Adult long) Pulse 94 Temp 97.8 F (Temporal) Resp 18 Wt 152 lb 3.2 oz SpO2 96% BMI 25.33 kg/m Smoking Status Never BSA 1.78 m Physical Exam Vitals and nursing note reviewed. Constitutional: General: She is not in acute distress. Appearance: Normal appearance. HENT: Head: Normocephalic and atraumatic. Right Ear: External ear normal. Left Ear: External ear normal. Nose: Nose normal. Mouth/Throat: Mouth: Mucous membranes are moist. Eyes: Extraocular Movements: Extraocular movements intact. Conjunctiva/sclera: Conjunctivae normal. Cardiovascular: Rate and Rhythm: Normal rate and regular rhythm. Pulses: Normal pulses. Heart sounds: Normal heart sounds. Pulmonary: Effort: Pulmonary effort is normal. Breath sounds: Normal breath sounds. Abdominal: General: Bowel sounds are normal. There is no distension. Palpations: Abdomen is soft. There is no mass. Tenderness: There is no abdominal tenderness. Musculoskeletal: General: Normal range of motion. Cervical back: Normal range of motion and neck supple. Lymphadenopathy: Cervical: No cervical adenopathy. Skin: General: Skin is warm and dry. Capillary Refill: Capillary refill takes 2 to 3 seconds. Findings: No rash. Neurological: General: No focal deficit present. Mental Status: She is alert and oriented to person, place, and time. Psychiatric: Mood and Affect: Mood normal. Behavior: Behavior normal. Thought Content: Thought content normal. Judgment: Judgment normal. ASSESSMENT AND PLAN: No follow-ups on file. Problem List Items Addressed This Visit Generalized anxiety disorder (CMS/HCC) - Primary Irritates and agitates easily, worse Has trialed wellbutrin and lexpro in the past more for depression Will trial sertraline at 25mg daily for 7 days, then 50mg Take medication only as directed. This medication will take approximately 4-6 weeks to become effective. If any suicidal thoughts, thoughts of hurting others, or hallucinations contact the office or proceed to the Emergency Room for mental health evaluation. Medication may cause dry mouth, dizziness, and in some cases worsening in depression symptoms. Please contact the office if these occur. Follow up in 4 weeks Also going to use EAP through employer Relevant Medications sertraline (Zoloft) 50 MG tablet documented in this encounter [facility] 07-12-2022 Evaluation note Encounter Date Diagnosis Assessment Notes Jun, Acute otitis externa of left ear, unspecified type (ICD-10 - H60.502) Otitis externa home care material was printed Drink plenty fluids, get plenty of rest. Take the Zithromax as prescribed until gone. Use eardrops as prescribed. Follow-up with your family physician if no improvement in 2 to 3 days Jun, Left otitis media, unspecified otitis media type (ICD-10 - H66.92) [facility] Other 11-17-2022 Evaluation note* Encounter Date Diagnosis Assessment Notes Treatment Notes Treatment Clinical Notes Jun, Bilateral acute otitis media (ICD-10 - H66.93) Discussed diagnosis with patient. Advised to take antibiotics as directed, complete entire course even if feeling better. Use OTC Flonase and Zyrtec as directed. Supportive care, Tylenol as needed for aches/fever, warm compress to affected ear, push fluids and rest. Follow up with PCP if symptoms do not improve in the next 2-3 days. Immediate eval for severe ear pain, severe headache, neck pain/stiffness, pain, erythema, or redness behind the ear, fever, N/V, hearing loss, fever, or any other new or concerning symptoms. Patient verbalizes understanding and is agreeable to treatment plan [facility] Other 09-28-2022 NoteDISCHARGE SUMMARY DISCHARGE DATE: 05/27/2022 PRIMARY DIAGNOSES: 1. Intrauterine at 39 weeks. 2. Breech presentation. PROCEDURE: Primary low transverse section. HOSPITAL COURSE: As expected. Please see chart for full details. LABORATORY DATA: Please see chart. COMPLICATIONS: None. DISCHARGE CONDITION: Stable. CONSULTATION: Anesthesia. DISCHARGE INSTRUCTIONS: 1. Diet: Regular. 2. Medications: a. Percocet 5/325 one to two p.o. every 4-6 hours p.r.n. pain. b. Motrin 800 one p.o. every 8 hours p.r.n. pain. 3. Followup in one week. Restrictions: Pelvic rest for 6 weeks. No heavy lifting. May drive when pain free and no longer on narcotics.[facility] [id number] NoteOPERATIVE NOTE OPERATION DATE: 05/17/2022 PROCEDURE: Primary low transverse section. PREOPERATIVE DIAGNOSIS: 1. Intrauterine at 39 weeks. 2. Breech presentation. POSTOPERATIVE DIAGNOSIS: 1. Intrauterine at 39 weeks. 2. Breech presentation. ANESTHESIA: Spinal with Duramorph. SURGEON: Shola Quinonez D.O. CLERICAL ADJUDICATOR: LISA Egan URINE OUTPUT: Yellow and clear. BLOOD LOSS: 600 mL. FINDINGS: Viable male. Apgars 9 at 1, 9 at 5. Weight unknown at this time. SPECIMEN: Placenta. PROCEDURE: Patient was taken back to the Operating Room where she was given a spinal anesthesia with Duramorph without difficulty. She was prepped and draped in the normal sterile fashion. A Pfannenstiel skin incision was then made 2 cm above the symphysis pubis and carried down to underlying rectus fascia using a Bovie. The fascia was incised in the midline and extended laterally using Forbes scissors. Two Pinky clamps were placed on the superior aspect of the fascia and dissected off the underlying rectus muscles. The same was performed on the inferior aspect as well. The muscles were then in the midline. Peritoneum was identified and entered bluntly. The peritoneum was then extended superiorly and inferiorly with good visualization of the bladder. The bladder blade was inserted. A low transverse incision was made on the patient's uterus and extended laterally digitally. The infant was then delivered atraumatically after the bladder blade was removed from breech presentation. The cord was clamped and cut. Cord blood was obtained. The infant was handed off to awaiting team. The patient's placenta was spontaneously delivered. The uterus was then exteriorized. The uterus was cleared of all clots and debris. The bladder blade was reinserted. The patient's uterine incision was closed using #0 Vicryl in a running lock fashion. Excellent hemostasis was assured. The uterus was then returned to the patient's abdomen. The patient's abdomen was copiously irrigated using warm saline. Peritoneal gutters were cleared of all clots and debris. Again excellent hemostasis was assured. The patient's peritoneum was closed using 3-0 Vicryl in a running fashion. The patient's fascia was closed using #0 Vicryl in a running fashion. The patient's skin was closed using 4-0 Vicryl subcuticularly. The patient tolerated the procedure well. Sponge, lap, and needle counts were correct x2. The patient was taken to the Recovery Room in stable condition.[facility] Hospital[facility] + Plan note No data available for this section [facility] Care Evaluation noteNo assessment information availableOhiohealth Doctors Hospital Work Phone: Evaluation note* Diagnosis Generalized anxiety disorder (CMS/HCC)- Primary Generalized anxiety disorder Generalized anxiety disorder (CMS/HCC)- Primary Generalized anxiety disorder Primary insomnia Persistent disorder of initiating or maintaining sleep documented in this encounter [facility] HealthcareEvaluation note* Diagnosis Generalized anxiety disorder (CMS/HCC)- Primary Generalized anxiety disorder Generalized anxiety disorder (CMS/HCC)- Primary Generalized anxiety disorder Primary insomnia Persistent disorder of initiating or maintaining sleep Generalized anxiety disorder (CMS/HCC)- Primary Generalized anxiety disorder Primary insomnia Persistent disorder of initiating or maintaining sleep documented in this encounter [facility] HealthcareEvaluation note* Diagnosis Generalized anxiety disorder (CMS/HCC)- Primary Generalized anxiety disorder documented [facility] encounter [facility] Narrative - Reported* Type Description Date Surgical History IUD Surgical History 2021 Hospitalization History childbirth 2021 [facility] Other Hospital Discharge instructions Additional Instructions Please return to emergency department with questions/concerns/concerning symptoms. Follow-up with your primary care doctor. Follow-up with an orthopedic surgeon in your hometown. Use Corona with caution as it may make you drowsy. Do not work or drive while taking this medicine. Rest, ice, elevate.[facility] Work Phone: Hospital Discharge instructions No data available for this section [facility] Progress note No data available for this section [facility] Summary Purpose Family History No Family History Records FoundNo Family History Records FoundNo Family History Records FoundNo Family History Records FoundNo Family History Records Found No data available for this section No Family History Records Found Advance Directives No Advanced Directives Records FoundNo Advanced Directives Records FoundNo Advanced Directives Records FoundNo Advanced Directives Records FoundNo Advanced Directives Records FoundNo Advanced Directives Records Found Chief Complaint and Reason for Visit Chief Complaint LT FOOT INJURY Additional Source Comments INFORMATION SOURCE (unrecogn ized section and content) DATE CREATED AUTHOR 02/06/2018 [facility] DATE CREATED AUTHOR AUTHOR'S ORGANIZ ATION 02/08/2018 [facility] DATE CREATED AUTHOR AUTHOR'S ORGANIZ ATION 08/18/2022 [facility] DATE CREATED AUTHOR AUTHOR'S ORGANIZ ATION 08/01/2023 [facility] DATE CREATED AUTHOR AUTHOR'S ORGANIZ ATION 05/26/[address] [facility] DATE CREATED AUTHOR AUTHOR'S ORGANIZ ATION 07/17/2024 [facility] dical Specialists EPIC REASON FOR VISIT (unrecogniz ed section and content) B/L EAR DISCOMFORT RIGHT WOR STCAN'T HEAR OUT LEFT EAR Care Teams (unrecognized sec tion and content) Team Status: Active Member Role Status Dates Physician None Primary Care Provider Active Team Status: Inactive Member Role Status Dates Physician None Primary Care Provider Active Sherman Masters PA-C Emergency Provider Active [employer] Relationship Specialty Start Date End Date Erika Villagran NP [address] [place] [id number] PCP - [employer] 07/20/23 Anatoliy Pendleton MD [address] [place] [id number] PCP - General Family Medicine 04/28/24 Erika Villagran NP Nurse Practitioner [facility] Medicine 05/08/23 [employer] Relationship Specialty Start Date End Date Erika Villagran NP [address] [place] [id number] PCP - [employer] 07/20/23 Anatoliy Pendleton MD [address] [place] [id number] PCP - General Family Medicine 04/28/24 Erika Villagran NP Nurse Practitioner Family Medicine 05/08/23 [employer] Relationship Specialty Start Date End Date Erika Villagran NP [address] [place] [id number] PCP - [employer] 07/20/23 Anatoliy Pendleton MD [address] [place] [id number] PCP - General Family Medicine 04/28/24 Erika Villagran NP Nurse Practitioner Family Medicine 05/08/23 [employer] Relationship Specialty Start Date End Date Erika Villagran NP [address] [place] [id number] PCP - [employer] 07/20/23 Anatoliy Pendleton MD [address] [place] [phone] PCP - General Family Medicine 04/28/24 Erika Villagran NP Nurse Practitioner Family Medicine 05/08/23 [employer] Relationship Specialty Start Date End Date Erika Villagran NP [address] [place] [id number] PCP - [employer] 07/20/23 Anatoliy Pendleton MD [address] [place] [phone] PCP - General Family Medicine 04/28/24 Erika Villagran NP Nurse Practitioner Family Medicine 05/08/23 [employer] Relationship Specialty Start Date End Date Erika Villagran NP [address] [place] [phone] PCP - [employer] 07/20/23 Anatoliy Pendleton MD [address] [place] [address] PCP - General Family Medicine 04/28/24 Erika Villagran NP Nurse Practitioner Family Medicine 05/08/23 Goals (unrecognized section and content) Goals may be documented in a n alternate section FOR RECORDS PERTAINING TO PATIENTS WHO ARE OR HAVE BEEN ENROLLED IN A CHEMICAL DEPENDENCY/SUBSTANCEABUSE PROGRAM, SOME INFORMATION MAY BE OMITTED. This clinical summary was aggregated from multiple sources. Caution should be exercised in using it in the provision of clinical care. This summary normalizes information from multiple sources, and as a consequence, information in this document may materially change the coding, format and clinical context of patient data. In addition, data may be omitted in some cases. CLINICAL DECISIONS SHOULD BE BASED ON THE PRIMARY CLINICAL RECORDS. [employer] provides no warranty or guarantee of the accuracy or completeness of information in this document.
== END 2024-09-01 20:07 | disposition home or self-care (01) ==
LOC: LAB 20:06
PROVIDERS: PCP Nurse Practitioner; Visit Provider Obstetrics & Gynecology
DX: Z01.419 Encounter for gynecological examination (general) (routine) without abnormal findings (principal)
CPT/HCPCS: 88175